=== PATIENT | male | born 1975 | race Caucasian/White ===

== ENCOUNTER 2016-09-08 13:02 | Outpatient (RCR) | payer BC ==
--- OUTSIDE RECORDS SUMMARY | 2016-06-22 14:14 | XMS REPORT | Continuity of Care Document ---
Author Author [facility] Organization [facility] Address Unknown Phone Unavailable Care Team Providers Care Skeet Operator Name Role Phone RiannaWest schmidt PCP [phone] Source Comments Some departments are not documenting in the electronic medical record. If you do not see the information that you expected, contact Release of Information in the Health Information Management department at [phone] for further assistance in locating additional records.[facility] Active Allergies and Adverse Reactions No Known Allergies Current Medications Prescription Sig. Disp. Refills Start End Date Status Date citalopram (CELEXA) 40 mg Take 1 Tab by mouth 30 Tab 5 12/25/19 Active tablet daily. 16 tiZANidine (ZANAFLEX) 4 Take 1 Tab by mouth three 90 Tab 5 01/15/20 Active mg tablet times daily. 16 zolpidem (AMBIEN) 10 mg Take 1 Tab by mouth at 30 Tab 0 01/15/20 Active tablet bedtime as needed for 16 Sleep. LYRICA 75 mg capsule TAKE ONE CAPSULE BY MOUTH 90 Cap 5 01/27/20 Active THREE TIMES DAILY 16 HYDROcodone/acetaminophen Take 1 Tab by mouth every 90 Tab 0 01/27/20 Active (+) (LORTAB, NORCO) 8 hours as needed for 16 10/325 mg tablet Pain traZODone (DESYREL) 50 mg Take 1 Tab by mouth at 30 Tab 8 04/09/20 Active tablet bedtime daily. 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 Frontal sinusitis 07/07/2011 Allergic rhinitis 07/07/2011 Nasal septal deviation 07/07/2011 Generalized headaches 07/07/2011 Most Recent Encounters Date Type Specialty Providers Description 05/26/2016 Telephone Anesthesia Pain Ton Rebolledo MD General Question 05/26/2016 Orders Only Anesthesia Pain Ton Rebolledo MD Lumbar radiculopathy (Primary Dx) 05/13/2016 Hospital Radiology Ton Rebolledo MD Encounter 05/04/2016 Screening Form 04/09/2016 Office Visit Anesthesia Pain Ton Rebolledo MD Chronic pain following surgery or procedure (Primary Dx); Neuropathic pain Social History Tobacco Use Types Packs/Day Years Used Date Never Smoker Smokeless Tobacco: Never Used Alcohol Use Drinks/Week oz/Week Comments Yes soc Last Filed Vital Signs Vital Sign Reading Time Taken Blood Pressure 116/75 04/09/2016 3:23 PM CDT Pulse 68 04/09/2016 3:23 PM CDT Temperature 36.6 C (97.8 F) 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 2.Continued mild disc degeneration at L4-L5. No areas of spinal canal or neural foraminal narrowing are now present. 3.Spinal cord stimulator entering the thecal sac at T11-T12 extending cranially out of the szjqf-za-ioyb. Finalized by PRUDENCE ROBERT M.D. on 05/14/2016 8:54 AM. Dictated by PRUDENCE ROBERT M.D. on 05/14/2016 8:47 AM. Narrative MRI L-SPINE WO/W CONTRAST Clinical indication: BACK PAIN, PRIOR SURGERY. Technique: Pre and postcontrast MRI of the brain was performed. Comparison: May 03, 2013 Findings: There has been interval left L5 hemilaminotomy and microdiscectomy. No recurrent disc is identified. Spinal stimulator wire enters the thecal sac at the level of T11-T12. This extends cranially out of the exmvi-be-lnst. There is normal lumbar curvature and alignment. Vertebral body heights are well- maintained without a suspicious geographic marrow lesion. There is disc degeneration at L4-L5. The conus medullaris terminates normally. The nerve roots of the cauda equina appear unremarkable. The prevertebral and paraspinal soft tissues are unremarkable. There are no areas of spinal canal or neural foraminal narrowing. Procedure Note Interface, Radiant Results - [facility] May 14, 2016 8:58 AM CDT MRI L-SPINE WO/W CONTRAST Clinical indication: BACK PAIN, PRIOR SURGERY. Technique: Pre and postcontrast MRI of the brain was performed. Comparison: May 03, 2013 Findings: There has been interval left L5 hemilaminotomy and microdiscectomy. No recurrent disc is identified. Spinal stimulator wire enters the thecal sac at the level of T11-T12. This extends cranially out of the dgenj-ro-zvjl. There is normal lumbar curvature and alignment. Vertebral body heights are well- maintained without a suspicious geographic marrow lesion. There is disc degeneration at L4-L5. The conus medullaris terminates normally. The nerve roots of the cauda equina appear unremarkable. The prevertebral and paraspinal soft tissues are unremarkable. There are no areas of spinal canal or neural foraminal narrowing. IMPRESSION 1. Previous left L5 hemilaminotomy and microdiscectomy without recurrent disc protrusion. 2. Continued mild disc degeneration at L4-L5. No areas of spinal canal or neural foraminal narrowing are now present. 3. Spinal cord stimulator entering the thecal sac at T11-T12 extending cranially out of the zzvpu-tx-jxfp. Finalized by PRUDENCE ROBERT M.D. on 05/14/2016 8:54 AM. Dictated by PRUDENCE ROBERT M.D. on 05/14/2016 8:47 AM.
[~2016-09-08 13:02] MED LIST: ACHD5005 PO; CYCL10TA45 PO; GBPN100C PO; HYDR-3820 PO; MULT-418; PRD20T PO; PREG75CA PO; RIZA5TAB13 PO; TIZA4CAP8 PO; ZOLP10TA PO; [UNRECOGNIZED DRUG - OTHER]
== END 2016-09-20 | disposition home or self-care (01) ==
PROVIDERS: ATTEND Anesthesiology
DX: M54.16 Radiculopathy, lumbar region (principal)

== ENCOUNTER 2016-09-29 14:01 | Outpatient (RCR) | payer BC ==
--- OUTSIDE RECORDS SUMMARY | 2016-09-21 14:53 | XMS REPORT | Continuity of Care Document ---
Author Author [facility] Organization [facility] Address Unknown Phone Unavailable Care Team Providers Care Shredded Filler Cigar Maker Machine Name Role Phone RiannaWest schmidt PCP [phone] Source Comments Some departments are not documenting in the electronic medical record. If you do not see the information that you expected, contact Release of Information in the Health Information Management department at [phone] for further assistance in locating additional records.[facility] Active Allergies and Adverse Reactions No [...] Nasal septal deviation 07/07/2011 Generalized headaches 07/07/2011 Social History Tobacco Use Types Packs/Day Years Used Date Never Smoker Smokeless Tobacco: Never Used Alcohol Use Drinks/Week oz/Week Comments Yes soc Last Filed Vital Signs Vital Sign Reading Time Taken Blood Pressure 116/75 04/09/2016 3:23 PM CDT Pulse 68 04/09/2016 3:23 PM CDT Temperature 36.6 C (97.8 F) 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
== END 2016-10-15 10:33 | disposition home or self-care (01) ==
PROVIDERS: ATTEND Anesthesiology
DX: M54.16 Radiculopathy, lumbar region (principal)

== ENCOUNTER 2017-02-14 11:07 | Emergency (ER) | payer BC ==
[~2017-02-14] VITALS: Ht 180.3 cm; Wt 95.3 kg
[2017-02-14] MEDS ORDERED: HYDROmorphone (DILAUDID) 2 MG/ML VIAL IVP STA (11:40)
[2017-02-14] MEDS ORDERED: KETOROLAC 30 MG/ML VIAL IVP STA (11:40)
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
[2017-02-14 11:55] LABS: BASOPHILS % (AUTO) 0 % (0-10); EOSINOPHILS # (AUTO) 0.1 10^3/uL (0.0-0.3); EOSINOPHILS % (AUTO) 1 % (0-10); LYMPHOCYTES # (AUTO) 1.6 X 10^3 (1.0-4.0); LYMPHOCYTES % (AUTO) 17 % (12-44); MEAN CORPUSCULAR HEMOGLOBIN 29 PG (25-34); MEAN CORPUSCULAR HGB CONC 34 G/DL (32-36); MEAN CORPUSCULAR VOLUME 84 FL (80-99); MEAN PLATELET VOLUME 10.6 FL (7.4-10.4); MONOCYTES # (AUTO) 0.8 X 10^3 (0.0-1.0); MONOCYTES % (AUTO) 8 % (0-12); NEUTROPHILS % (AUTO) 74 % (42-75); PLATELET COUNT 214 10^3/uL (130-400); RED BLOOD COUNT 5.38 10^6/uL (4.35-5.85); WHITE BLOOD COUNT 9.5 10^3/uL (4.3-11.0)
[2017-02-14 12:18] LABS: ALANINE AMINOTRANSFERASE 29 U/L (0-55); ANION GAP 10 MMOL/L (5-14); ASPARTATE AMINO TRANSFERASE 17 U/L (5-34); BILIRUBIN,TOTAL 0.4 MG/DL (0.1-1.0); BLOOD UREA NITROGEN 14 MG/DL (7-18); BUN/CREATININE RATIO 17; CALCIUM 9.6 MG/DL (8.5-10.1); CARBON DIOXIDE 21 MMOL/L (21-32); CHLORIDE 106 MMOL/L (98-107); CREATININE SERUM 0.81 MG/DL (0.60-1.30); GFR ESTIMATED > 60; GLUCOSE 96 MG/DL (70-105); POTASSIUM 3.6 MMOL/L (3.6-5.0); SODIUM 137 MMOL/L (135-145); TOTAL PROTEIN 7.1 G/DL (6.4-8.2)
[2017-02-14] MEDS ORDERED: ONDANSETRON 4 MG/2 ML (SDV) Z0FRAN IVP ONE (12:30)
[2017-02-14] MEDS ORDERED: HYDROmorphone (DILAUDID) 2 MG/ML VIAL IVP PRN (12:30)
--- NOTE | 2017-02-14 13:02 | Diagnostic Imaging Report ---
PROCEDURE: CT lumbar spine without contrast. TECHNIQUE: Multiple contiguous axial images were obtained through the lumbar spine without the use of intravenous contrast. Sagittal and coronal reformations were then performed. INDICATION: Chronic low back pain. Comparison: Lumbar spine MRI from 06/21/2015. Findings: Normal alignment lumbar spine. No acute fracture or traumatic malalignment. There are chronic bilateral pars defects at L5 without spondylolisthesis. Multilevel endplate Schmorl's nodes are present and not significantly changed since prior examination. There is an epidermal spinal stimulator which has leads entering the epidural space at T12 and coursing in the posterior epidural space into the thoracic spine, with the tips not completely imaged. Small disc bulges at L3-L4 and L4-L5 are similar in appearance to prior MRI. No foci of high-grade spinal stenosis or neuroforaminal narrowing by non-myelogram imaging. Sacrum is normal. SI joints are well-maintained. Retroperitoneum is unremarkable. Impression: 1. No acute abnormality of the lumbar spine. 2. Chronic bilateral pars defects of L5 without spondylolisthesis. 3. Small disc bulges in the lower lumbar spine are unchanged since lumbar spine MRI of 06/21/2015. Dictated by: Dictated on workstation # [id number]
[2017-02-14 14:14] LABS: BILIRUBIN,URINE NEGATIVE (NEGATIVE); KETONES,URINE NEGATIVE (NEGATIVE); LEUKOCYTE ESTERASE ,URINE NEGATIVE (NEGATIVE); NITRITE,URINE NEGATIVE (NEGATIVE); PH,URINE 5 (5-9); PROTEIN,URINE NEGATIVE (NEGATIVE); UROBILINOGEN,URINE NORMAL (NORMAL)
[2017-02-14] MEDS ORDERED: OXYC-202 PO (14:41)
[2017-02-14] MEDS ORDERED: PRD20T PO (14:41)
[2017-02-14 14:50] VITALS: BP 107/68
== END 2017-02-14 14:50 | disposition home or self-care (01) ==
LOC: EDUNIT# 11:07 → ER 11:08
DX: M54.41 Lumbago with sciatica, right side (principal); M54.42 Lumbago with sciatica, left side; G89.29 Other chronic pain; Z79.891 Long term (current) use of opiate analgesic
CPT/HCPCS: 36415; 72131; 80053; 81000; 85025

== ENCOUNTER → 2017-04-28 | Outpatient (CLI) | payer BC ==
[~2017-04-28] MED LIST changes: +OXYC-202 PO
--- NOTE | 2017-04-28 18:12 | Diagnostic Imaging Report ---
INDICATION: KUB. INDICATION: Abdominal pain. FINDINGS: There is a pulse generator with epidural leads projecting over the lower thoracic spine. Moderate amount of fecal material in the colon are seen. No significantly dilated bowel loops. Calcifications in the upper abdomen are probably related to costal cartilage calcification. IMPRESSION: No acute process. Dictated by: Dictated on workstation # [id number]
== END ==
LOC: RAD 15:34
PROVIDERS: ATTEND Nurse Practitioner Family
DX: K59.00 Constipation, unspecified (principal); Z96.9 Presence of functional implant, unspecified
CPT/HCPCS: 74000

== ENCOUNTER → 2018-05-05 | Outpatient (CLI) | payer BC | LOC: RAD 13:44 | PROVIDERS: ATTEND Anesthesiology Pain Medicine | DX: M54.18 Radiculopathy, sacral and sacrococcygeal region (principal); Z53.8 Procedure and treatment not carried out for other reasons ==

== ENCOUNTER 2018-06-02 15:15 | Inpatient (IN) | payer BC ==
[~2018-06-02] VITALS: Ht 175.3 cm; Wt 106.6 kg
[~2018-06-02 15:15] MED LIST changes: -OXYC-202 PO; +OXYC1TAB12 PO
--- OUTSIDE RECORDS SUMMARY | 2018-06-02 15:25 | XMS REPORT | Continuity of Care Document ---
Author Author [facility] Organization [facility] Address Unknown Phone Unavailable Allergies Active Description Code Type Severity Reaction Onset Reported/Identified Relationship to Patient Clinical Status Yes NKANo Known Allergies NKA Miscellaneous Allergy Mild N/A 09/09/2009 Yes No Known Drug Allergy Drug Allergy Unknown N/A 08/03/2016 Yes No Known Drug Category Allergy Drug Allergy Unknown N/A 08/03/2016 Yes No Known Environment Allergy Environmental Allergy Unknown N/A 08/03/2016 Yes No Known Food Allergy Food Allergy Unknown N/A 08/03/2016 Medications Medication Packaging Start Date Stop Date Route Dosage Sig tiZANidine 4 mg tablet Ampule 08/03 4 mg take 1 ( one) Tablet by Oral route daily escitalopram 20 mg tablet Ampule 20 mg take 1 (one) Tablet by Oral route daily Lyrica 100 mg capsule Ampule 2015 100 mg take 1 ( one) Capsule by Oral route three times per day zolpidem 5 mg tablet Ampule 2015 5 mg take 1 ( one) Tablet by Oral route at bedtime Problems Date Dx Coded Attending Type Code Diagnosis Diagnosed By 08/19/1032 DARIN BENITO, DEMARCO Bronson Ot M54.16 RADICULOPATHY, LUMBAR REGION 08/19/1699 DEMARCO WEBSTER MD Ot M54.5 LOW BACK PAIN 03/11/2013 FREDDY BENITO, MICKY Britton Ot 276.52 HYPOVOLEMIA 03/11/2013 FREDDY BENITO, MICKY Britton Ot 729.82 CRAMP IN LIMB 03/11/2013 FREDDY BENITO, MICKY Britton Ot 787.02 NAUSEA ALONE 06/13/2013 LORI JAIMES APRN Ot 724.2 LUMBAGO 06/13/2013 LORI JAIMES APRN Ot 724.4 LUMBOSACRAL NEURITIS NOS 07/25/2013 JAMIE LITTLE MD Ot 458.9 HYPOTENSION NOS 07/25/2013 JAMIE LITTLE MD Ot 780.2 SYNCOPE AND COLLAPSE 10/18/2013 KEISHA REESE MD Ot 338.18 OTHER ACUTE POSTOPERATIVE PAIN 10/18/2013 KEISHA REESE MD Ot 724.2 LUMBAGO 10/18/2013 KEISHA REESE MD Ot 847.9 SPRAIN OF BACK NOS 10/18/2013 KEISHA REESE MD Ot E000.8 OTHER EXTERNAL CAUSE STATUS 10/18/2013 KEISHA REESE MD Ot E849.0 ACCIDENT IN HOME 10/18/2013 KEISHA REESE MD Ot E928.9 ACCIDENT NOS 07/15/2015 DARIN BENITO, DEMARCO Bronson Ot M54.5 07/15/2015 DARIN BENITO, DEMARCO Bronson Ot M79.661 07/15/2015 DEMARCO WEBSTER MD Ot M79.662 10/02/2015 OTHER, UNLISTED Ot M54.17 03/12/2016 DARIN BENITO, DEMARCO Bronson Ot M54.41 LUMBAGO WITH SCIATICA, RIGHT SIDE 03/12/2016 DEMARCO WEBSTER MD Ot M54.42 LUMBAGO WITH SCIATICA, LEFT SIDE 03/14/2016 DEMARCO WEBSTER MD Ot M54.41 LUMBAGO WITH SCIATICA, RIGHT SIDE 03/14/2016 DARIN BENITO, DEMARCO Bronson Ot M54.42 LUMBAGO WITH SCIATICA, LEFT SIDE 05/29/2016 DEMARCO WEBSTER MD Ot M54.5 LOW BACK PAIN 06/08/2016 Ot 473.0 CHR MAXILLARY SINUSITIS 06/08/2016 Ot 784.2 SWELLING IN HEAD NECK 06/08/2016 SIDNEY BENITO, JAMIE Silvestre Ot 397.0 TRICUSPID VALVE DISEASE 06/08/2016 SIDNEY BENITO, JAMIE Silvestre Ot 424.0 MITRAL VALVE DISORDER 06/08/2016 SIDNEY BENITO, JAMIE Silvestre Ot 780.2 SYNCOPE AND COLLAPSE 06/08/2016 DEMARCO WEBSTER MD Ot M54.5 LOW BACK PAIN 06/08/2016 DEMARCO WEBSTER MD Ot M79.661 PAIN IN RIGHT LOWER LEG 06/08/2016 DEMARCO WEBSTER MD Ot M79.662 PAIN IN LEFT LOWER LEG 06/08/2016 OTHER, UNLISTED Ot M54.17 RADICULOPATHY, LUMBOSACRAL REGION 06/08/2016 DEMARCO WEBSTER MD Ot M54.5 LOW BACK PAIN 06/08/2016 LORI JAIMES CONFIGURATOR Ot M54.16 RADICULOPATHY, LUMBAR REGION 06/08/2016 LORI JAIMES CONFIGURATOR Ot M54.5 LOW BACK PAIN 06/08/2016 LORI JAIMES CONFIGURATOR Ot Z79.899 OTHER [facility] (CURRENT) DRUG THERAPY 06/19/2016 DARIN BENITO, DEMARCO Bronson Ot M54.5 LOW BACK PAIN 06/22/2016 DARIN BENITO, DEMARCO Bronson Ot M54.5 LOW BACK PAIN 07/30/2016 DARIN BENITO, DEMARCO Bronson Ot M54.16 RADICULOPATHY, LUMBAR REGION 08/04/2016 Mellion, B Mt G89.4 Chronic pain syndrome Mellion, B Mt 08/04/2016 Mellion, B Mt M47.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, lumbar region Mellion, B Mt 08/04/2016 Mellion, B Mt M54.5 Low back pain Mellion, B Mt 08/04/2016 Mellion, B Mt M96.1 Postlaminectomy syndrome, not elsewhere classified Mellion, B Mt 09/02/2016 DARIN BENITO, DEMARCO Bronson Ot M54.16 RADICULOPATHY, LUMBAR REGION 09/20/2016 DARIN BENITO, DEMARCO Bronson Ot M54.16 RADICULOPATHY, LUMBAR REGION 09/22/2016 DARIN BENITO, DEMARCO Bronson Ot M54.16 RADICULOPATHY, LUMBAR REGION 09/24/2016 DARIN BENITO, DEMARCO Bronson Ot M54.16 RADICULOPATHY, LUMBAR REGION 09/27/2016 DARIN BENITO, DEMARCO Bronson Ot M54.16 RADICULOPATHY, LUMBAR REGION 09/29/2016 DARIN BENITO, DEMARCO Bronson Ot M54.16 RADICULOPATHY, LUMBAR REGION 10/15/2016 DARIN BENITO, DEMARCO Bronson Ot M54.16 RADICULOPATHY, LUMBAR REGION 02/14/2017 CHIQUIS BENITO, LUISA Silvestre Ot G89.29 OTHER CHRONIC PAIN 02/14/2017 CHIQUIS BENITO, LUISA Silvestre Ot M54.41 LUMBAGO WITH SCIATICA, RIGHT SIDE 02/14/2017 LUISA SIM MD Ot M54.42 LUMBAGO WITH SCIATICA, LEFT SIDE 02/14/2017 LUISA SIM MD, Ot M54.5 LOW BACK PAIN 02/14/2017 LUISA SIM MD Ot Z79.891 [facility] (CURRENT) USE OF OPIATE ANALGE 02/17/2017 LUISA SIM MD Ot G89.29 OTHER CHRONIC PAIN 02/17/2017 LUISA SIM MD Ot M54.41 LUMBAGO WITH SCIATICA, RIGHT SIDE 02/17/2017 LUISA SIM MD Ot M54.42 LUMBAGO WITH SCIATICA, LEFT SIDE 02/17/2017 LUISA SIM MD Ot M54.5 LOW BACK PAIN 02/17/2017 LUISA SIM MD Ot Z79.891 [employer] CARD (CURRENT) USE OF OPIATE ANALGE 04/29/2017 RIDGE MARTINEZ APRN Ot K59.00 CONSTIPATION, UNSPECIFIED 04/29/2017 RIDGE MARTINEZ APRN Ot Z96.9 PRESENCE OF FUNCTIONAL IMPLANT, UNSPECIF 05/17/2017 RIDGE MARTINEZ APRN Ot K59.00 CONSTIPATION, UNSPECIFIED 05/17/2017 RIDGE MARTINEZ APRN Ot Z96.9 PRESENCE OF FUNCTIONAL IMPLANT, UNSPECIF 05/11/2018 JIM WATSON MD, Ot M47.816 SPONDYLOSIS W/O MYELOPATHY OR RADICULOPA 05/11/2018 WALTER BENITO, JIM Zuñiga Ot M51.26 OTHER INTERVERTEBRAL DISC DISPLACEMENT, Procedures Code [place] [address] New Patient Detailed Trudi Xiong Mt 08/04/2016 73201 New Patient Detailed Trudi Xiong Mt 11/03/2016 Results Test Result Range Complete blood count (CBC) with automated white blood cell (WBC) differential - 02/14/17 11:45 Blood leukocytes automated count (number/volume) 9.5 10*3/uL 4.3-11.0 Blood erythrocytes automated count (number/volume) 5.38 10*6/uL 4.35-5.85 Venous blood hemoglobin measurement (mass/volume) 15.4 g/dL 13.3-17.7 Blood hematocrit (volume fraction) 45 % 40-54 Automated erythrocyte mean corpuscular volume 84 [foz_us] 80-99 Automated erythrocyte mean corpuscular hemoglobin (mass per erythrocyte) 29 pg 25-34 Automated erythrocyte mean corpuscular hemoglobin concentration measurement ( mass/volume) 34 g/dL 32-36 Automated erythrocyte distribution width ratio 13.0 % 10.0-14.5 Automated blood platelet count (count/volume) 214 10*3/uL 130-400 Automated blood platelet mean volume measurement 10.6 [foz_us] 7.4-10.4 Automated blood neutrophils/100 leukocytes 74 % 42-75 Automated blood lymphocytes/100 leukocytes 17 % 12-44 Blood monocytes/100 leukocytes 8 % 0-12 Automated blood eosinophils/100 leukocytes 1 % 0-10 Automated blood basophils/100 leukocytes 0 % 0-10 Blood neutrophils automated count (number/volume) 7.0 10*3 1.8-7.8 Blood lymphocytes automated count (number/volume) 1.6 10*3 1.0-4.0 Blood monocytes automated count (number/volume) 0.8 10*3 0.0-1.0 Automated eosinophil count 0.1 10*3/uL 0.0-0.3 Automated blood basophil count (count/volume) 0.0 10*3/uL 0.0-0.1 Comprehensive metabolic panel - 02/14/17 11:45 Serum or plasma sodium measurement (moles/volume) 137 mmol/L 135-145 Serum or plasma potassium measurement (moles/volume) 3.6 mmol/L 3.6-5.0 Serum or plasma chloride measurement (moles/volume) 106 mmol/L 98-107 Carbon dioxide 21 mmol/L 21-32 Serum or plasma anion gap determination (moles/volume) 10 mmol/L 5-14 Serum or plasma urea nitrogen measurement (mass/volume) 14 mg/dL 7-18 Serum or plasma creatinine measurement (mass/volume) 0.81 mg/dL 0.60-1.30 Serum or plasma urea nitrogen/creatinine mass ratio 17 NRG Serum or plasma creatinine measurement with calculation of estimated glomerular filtration rate > NRG Serum or plasma glucose measurement (mass/volume) 96 mg/dL 70-105 Serum or plasma calcium measurement (mass/volume) 9.6 mg/dL 8.5-10.1 Serum or plasma total bilirubin measurement (mass/volume) 0.4 mg/dL 0.1-1.0 Serum or plasma alkaline phosphatase measurement (enzymatic activity/volume) 75 U/L 40-136 Serum or plasma aspartate aminotransferase measurement (enzymatic activity/ volume) 17 U/L 5-34 Serum or plasma alanine aminotransferase measurement (enzymatic activity/volume ) 29 U/L 0-55 Serum or plasma protein measurement (mass/volume) 7.1 g/dL 6.4-8.2 Serum or plasma albumin measurement (mass/volume) 4.0 g/dL 3.2-4.5 Complete urinalysis with reflex to culture - 02/14/17 14:00 Urine color determination YELLOW NRG Urine clarity determination CLEAR NRG Urine pH measurement by test strip 5 5-9 Specific gravity of urine by test strip 1.015 1.016- 1.022 Urine protein assay by test strip, semi-quantitative NEGATIVE NEGATIVE Urine glucose detection by automated test strip 3+ NEGATIVE Erythrocytes detection in urine sediment by light microscopy NEGATIVE NEGATIVE Urine ketones detection by automated test strip NEGATIVE NEGATIVE Urine nitrite detection by test strip NEGATIVE NEGATIVE Urine total bilirubin detection by test strip NEGATIVE NEGATIVE Urine urobilinogen measurement by automated test strip (mass/volume) NORMAL NORMAL Urine leukocyte esterase detection by dipstick NEGATIVE NEGATIVE Automated urine sediment erythrocyte count by microscopy (number/high power field) NONE NRG Automated urine sediment leukocyte count by microscopy (number/high power field ) NONE NRG Bacteria detection in urine sediment by light microscopy NEGATIVE NRG Crystals detection in urine sediment by light microscopy NONE NRG Casts detection in urine sediment by light microscopy NONE NRG Mucus detection in urine sediment by light microscopy NEGATIVE NRG Complete urinalysis with reflex to culture NO NRG Encounters ACCT No. Visit Date/Time Discharge Status Pt. Type Provider Facility Loc./Unit Complaint [id number] 02/23/2017 12:42:19 02/23/2017 23:59:59 CLS Outpatient Flaco Dilan [id number] 05/10/2018 10:50:00 05/10/2018 23:59:59 CLS Outpatient WALTER BENITO, JIM Zuñiga [facility] RAD RADICULOPATHY,LUMBAR REGION [id number] 04/28/2017 15:34:00 04/28/2017 23:59:59 CLS Outpatient RIDGE MARTINEZ APRN [facility] RAD ABDOMINAL PAIN, CONSTIPATION,BLOATING [id number] 02/14/2017 11:08:00 02/14/2017 14:50:00 DIS Emergency CHIQUIS BENITO, LUISA Silvestre [facility] ER BACK PAIN [id number] 09/29/2016 14:01:00 10/15/2016 10:33:00 DIS Outpatient DEMARCO WEBSTER MD [facility] REHAB LOW BACK PAIN [id number] 09/08/2016 13:02:00 09/20/2016 00:01:00 DIS Outpatient DEMARCO WEBSTER MD [facility] REHAB LOW BACK PAIN [id number] 06/19/2016 14:28:00 06/19/2016 17:00:00 DIS Outpatient DEMARCO WEBSTER MD [facility] REHAB LOW BACK PAIN [id number] 06/08/2016 16:55:00 06/08/2016 19:01:00 DIS Emergency LORI JAIMES CONFIGURATOR [facility] ER BACK/BILAT LEG PAIN [id number] 02/03/2016 14:32:00 03/12/2016 14:40:00 DIS Outpatient DEMARCO WEBSTER MD [facility] REHAB BACK PAIN [id number] 09/19/2015 15:11:00 09/19/2015 23:59:59 CLS Outpatient OTHER, UNLISTED [facility] LAB MRSA SCREEN [id number] 06/21/2015 12:16:00 06/21/2015 23:59:59 CLS Outpatient DEMARCO WEBSTER MD [facility] RAD LOWER BACK LEG PAIN [id number] 10/18/2013 03:54:00 10/18/2013 05:58:00 DIS Emergency KEISHA REESE MD [facility] ER BACK PAIN [id number] 07/25/2013 13:39:00 07/25/2013 14:38:00 DIS Outpatient JAMIE LITTLE MD [facility] CARD SYNCOPE [id number] 07/24/2013 10:28:00 07/24/2013 23:59:59 CLS Outpatient JAMIE LITTLE MD [facility] CARD SYNCOPE [id number] 06/13/2013 19:48:00 06/13/2013 21:47:00 DIS Emergency LORI JAIMES CONFIGURATOR [facility] ER BACK PAIN [id number] 03/11/2013 21:03:00 03/11/2013 22:51:00 DIS Emergency FREDDY BENITO, MICKY [facility] ER LEG PAIN,FATIGUE [id number] 06/24/2011 15:08:00 Document Registration [id number] 08/04/2016 12:35:09 08/04/2016 23:59:59 CLS Outpatient Trudi Xiong [id number] 08/04/2017 14:50:47 08/04/2017 23:59:59 CLS Outpatient
[2018-06-02] MEDS ORDERED: NS IV 1000 ML 1,000 ML IV ONE (15:27)
[2018-06-02 15:57] LABS: BASOPHILS % (AUTO) 0 % (0-10); EOSINOPHILS % (AUTO) 0 % (0-10); HEMATOCRIT 40 % (40-54); HEMOGLOBIN 13.5 G/DL (13.3-17.7); LYMPHOCYTES # (AUTO) 1.4 X 10^3 (1.0-4.0); LYMPHOCYTES % (AUTO) 9 % (12-44); MEAN CORPUSCULAR HEMOGLOBIN 29 PG (25-34); MEAN CORPUSCULAR HGB CONC 34 G/DL (32-36); MEAN CORPUSCULAR VOLUME 85 FL (80-99); MONOCYTES # (AUTO) 1.5 X 10^3 (0.0-1.0); MONOCYTES % (AUTO) 10 % (0-12); NEUTROPHILS # (AUTO) 12.1 X 10^3 (1.8-7.8); NEUTROPHILS % (AUTO) 80 % (42-75); PLATELET COUNT 237 10^3/uL (130-400); RED BLOOD COUNT 4.66 10^6/uL (4.35-5.85); RED CELL DISTRIBUTION WIDTH 13.7 % (10.0-14.5)
--- NOTE | 2018-06-02 16:04 | Diagnostic Imaging Report ---
CLINICAL INDICATION: Patient found on floor, possible overdose. Patient unable to answer questions or follow breathing instructions. EXAM: Portable chest x-ray upright view. COMPARISONS: None. FINDINGS: Lungs/pleura: Lungs are clear. There is no pneumothorax. There is no pleural effusion. Mediastinum: Unremarkable. Pulmonary vasculature: Unremarkable. Heart: Unremarkable. Bones/extrathoracic soft tissue: Neurostimulator electrode device is seen with tip overlying the midthoracic spine region. IMPRESSION: There is no radiographic evidence of acute cardiopulmonary process. Dictated by: Dictated on workstation # [id number]
[2018-06-02 16:12] LABS: BAND NEUTROPHILS 0 %; BASOPHILS % (MANUAL) 0 %; EOSINOPHILS % (MANUAL) 1 %; LYMPHOCYTES % (MANUAL) 14 %; MONOCYTES % (MANUAL) 7 %; NEUTROPHILS % (MANUAL) 78 %; RBC MORPH NORMAL
[2018-06-02 16:15] LABS: BILIRUBIN,URINE NEGATIVE (NEGATIVE); CLARITY,URINE CLEAR; COLOR,URINE YELLOW; GLUCOSE, URINE (UA) NEGATIVE (NEGATIVE); KETONES,URINE NEGATIVE (NEGATIVE); LEUKOCYTE ESTERASE ,URINE NEGATIVE (NEGATIVE); NITRITE,URINE NEGATIVE (NEGATIVE); PH,URINE 5 (5-9); PROTEIN,URINE 3+ (NEGATIVE); UROBILINOGEN,URINE NORMAL (NORMAL)
[2018-06-02 16:15] LABS: ACETAMINOPHEN 10 UG/ML (10-30); ALANINE AMINOTRANSFERASE 37 U/L (0-55); ALBUMIN 4.2 GM/DL (3.2-4.5); ALKALINE PHOSPHATASE 65 U/L (40-136); BILIRUBIN,TOTAL 0.8 MG/DL (0.1-1.0); BUN/CREATININE RATIO 10; CALCIUM 9.7 MG/DL (8.5-10.1); CARBON DIOXIDE 17 MMOL/L (21-32); CHLORIDE 107 MMOL/L (98-107); CREATININE SERUM 1.72 MG/DL (0.60-1.30); GFR ESTIMATED 44; GLUCOSE 107 MG/DL (70-105); MAGNESIUM 2.4 MG/DL (1.8-2.4); POTASSIUM 4.2 MMOL/L (3.6-5.0); SALICYLATE < 5.0 MG/DL (5.0-20.0); SODIUM 137 MMOL/L (135-145); TOTAL PROTEIN 6.7 GM/DL (6.4-8.2)
[2018-06-02 16:32] LABS: AMPHETAMINE SCREEN, URINE NEGATIVE (NEGATIVE); BARBITURATE SCREEN URINE NEGATIVE (NEGATIVE); BENZODIAZEPINES SCREEN URINE NEGATIVE (NEGATIVE); CANNABINOID SCREEN, URINE NEGATIVE (NEGATIVE); COCAINE SCREEN URINE NEGATIVE (NEGATIVE); METHADONE STAT NEGATIVE (NEGATIVE); METHAMPHETAMINE SCREEN URINE S NEGATIVE (NEGATIVE); OPIATE SCREEN URINE POSITIVE (NEGATIVE); OXYCODONE STAT POSITIVE (NEGATIVE); PROPOXYPHENE STAT NEGATIVE (NEGATIVE); TRICYCLIC ANTIDEPRESSANTS SCRE NEGATIVE (NEGATIVE)
[2018-06-02 16:35] LABS: TSH (THYROID ANALYZER) 1.97 UIU/ML (0.35-4.94)
[2018-06-02 16:40] LABS: BACTERIA,URINE TRACE /HPF; WBC,URINE 0-2 /HPF
--- NOTE | 2018-06-02 17:48 | Diagnostic Imaging Report ---
PROCEDURE: CT head and CT cervical spine without contrast. TECHNIQUE: Multiple contiguous axial images were obtained through the brain and cervical spine without the use of intravenous contrast. Sagittal and coronal reformations through the cervical spine were then performed. DATE: June 02, 2018. COMPARISON: CT head without contrast September 09, 2009. INDICATION: 42-year-old male, head and neck pain. FINDINGS: The ventricles and cerebral spinal fluid spaces are of normal size and configuration for the patient's age. There is no mass effect or midline shift. There is no acute intracranial hemorrhage. There is no abnormal extra-axial fluid collection. The frontal sinuses are hypoplastic. There is partial opacification within the inferior aspect of the left maxillary sinus. The mastoid air cells and middle ears are well aerated bilaterally. There is pneumatization of the petrous apices. There is no facet joint subluxation or dislocation. There is no asymmetric widening of the cervical disc spaces. There is no prominent prevertebral soft tissue swelling. There is no identified acute fracture of the cervical spine. The cervical disc heights are well preserved. CT is limited for assessment of disc pathology as well as additional non-bony causes of foraminal and spinal stenosis. The facet articulations are unremarkable in appearance. Very partially visualized portions of the lung apices are grossly clear. IMPRESSION: 1. No identified acute intracranial abnormality. 2. No identified acute abnormality of the cervical spine. Dictated by: Dictated on workstation # [id number]
--- NOTE | 2018-06-02 18:50 | ED Psychosocial ---
General Chief Complaint: Overdose Stated Complaint: OVERDOSE Nursing Triage Note: pt arrive by [facility] em[facility] accompanied by [facility] after pt parents report intentional ingestion of oxycodones, ambien, and trazadone to 'harm self because he can no longer deal with the pain.' fpd ,reports ingestion prior his arrival at approx 1500. pt alert, restless, and agitated. pt having hallucinations. Source: patient, family, EMS, old records Exam Limitations: clinical condition History of Present Illness Date Seen by Provider: Jun 02, 2018 Time Seen by Provider: 15:16 Initial Comments This 42-year-old man is brought to the emergency room via EMS after being found down in the bathroom with decreased responsiveness by his father who came to the home to check on him. Patient admitted to taking large quantities of hydrocodone, Ambien, and nizatidine. The quantities of these medications very depending on patient's report at any given time. He does have bottles of Percocet, Ambien, Lyrica, and tizanidine brought with him by EMS. Patient is arousable and can answer some questions but is extremely somnolent with slurred , sometimes incomprehensible speech. EMS administered 2 mg of Narcan which did improve his mental status modestly. They report pupils were pinpoint prior to Narcan. Fingerstick blood sugar was 96. Parents were interviewed as well. Father reports that patient seemed excessively somnolent and weak last night. He had taken his medications before bed and then had trouble getting into bed. His father could not get him into bed and therefore made him a polyp on the floor. When his father checked on him this morning around 10:00, he was still in the same place but was able to get up and ambulate with some difficulty. His father then checked on him after lunch and found him draped over the toilet with altered mental status. He activated EMS. Patient's story and his report of which medications and in what quantities he consumed varies. Ingestion time was somewhere around 14:00. Patient does clearly state that his intent was suicide by overdose. He states he is tired of dealing with his chronic back and leg pain and therefore intended to commit suicide with this overdose. Allergies and Home Medications Allergies Coded Allergies: NKANo Known Allergies (Unverified Allergy, Mild, 09/09/09) Home Medications Hydrocodone/Acetaminophen 1 Each Tablet, 1 EACH PO Q8H PRN for P, (Reported) Oxycodone HCl/Acetaminophen 1 Each Tablet, 2 EACH PO Q4H PRN for PAIN- BREAKTHROUGH Prescribed by: LUISA SIM on 02/14/17 144 Prednisone 20 Mg Tab, 40 MG PO DAILY Prescribed by: LORI JAIMES on 06/08/161833 Prednisone 20 Mg Tab, 40 MG PO BID Prescribed by: LUISA SIM on 02/14/17 144 Pregabalin 75 Mg Capsule, 75 MG PO TID, (Reported) Tizanidine HCl 4 Mg Capsule, 4 MG PO TID, (Reported) Zolpidem Tartrate 10 Mg Tablet, 10 MG PO HS Prescribed by: LORI JAIMES on 06/08/161833 Patient Home Medication List Home Medication List Reviewed: Yes Review of Systems Constitutional: see HPI EENTM: no symptoms reported Respiratory: no symptoms reported Cardiovascular: no symptoms reported Gastrointestinal: no symptoms reported Genitourinary: no symptoms reported Musculoskeletal: see HPI Skin: no symptoms reported Psychiatric/Neurological: See HPI Past Vsdlnst-Xcnpba-Emwwzj Hx Patient Social History Recent Foreign Travel: No Contact w/Someone Who Travel: No Recent Infectious Disease Expo: No Recent Hopitalizations: No Seasonal Allergies Seasonal Allergies: No Past Medical History Surgeries: Yes (DISCECTOMY L4-L5) Respiratory: No Cardiac: No Neurological: No Reproductive Disorders: No Gastrointestinal: No Musculoskeletal: Yes (back injury 3 months ago herniated disk l-5, NERVE STIMULATOR IN BACK) Chronic Back Pain, Spasms Endocrine: No Cancer: No Psychosocial: Yes Depression Integumentary: No Blood Disorders: No Family Medical History No Pertinent Family Hx Physical Exam Vital Signs - First Documented 06/02/18 15:33 Temp 95.5 Pulse 60 Resp 14 B/P (MAP) 121/105 (110) Pulse Ox 99 O2 Delivery Room Air Capillary Refill : Less Than 3 Seconds Height, Weight, BMI Height: 5'9.00" Weight: 200lbs. oz. 90.531764ha; BMI Method:Estimated General Appearance: WD/WN, other (Somnolent but agitated) HEENT: PERRL/EOMI, normal ENT inspection, other (Oropharynx dry) Neck: normal inspection Respiratory: lungs clear, normal breath sounds, no respiratory distress, no accessory muscle use Cardiovascular: regular rate, rhythm, no edema, no murmur Gastrointestinal: normal bowel sounds, non tender, soft Extremities: normal inspection, no pedal edema Neurologic/Psychiatric: other (Patient is somnolent but arousable and answers questions. He is able to move all 4 extremities. He has some involuntary twitching and jerking. Speech is slurred or mumbled.) Appearance/Memory: impaired insight, impaired recent memory Behavior/Eye Contact: cooperative, avoids eye contact Thoughts/Hallucinations: other (Suicidal ideation and intent) Skin: normal color, warm/dry Progress/Results/Core Measures Results/Orders Lab Results Laboratory Tests Test 06/02/18 15:23 06/02/18 15:45 06/02/18 17:14 06/02/18 19:32 Range/Units White Blood Count 15.0 H 4.3-11.0 10^3/uL Red Blood Count 4.66 4.35-5.85 10^6/uL Hemoglobin 13.5 13.3-17.7 G/DL Hematocrit 40 40-54 % Mean Corpuscular Volume 85 80-99 FL Mean Corpuscular Hemoglobin 29 25-34 PG Mean Corpuscular Hemoglobin Concent 34 32-36 G/DL Red Cell Distribution Width 13.7 10.0-14.5 % Platelet Count 237 130-400 10^3/uL Mean Platelet Volume 11.0 H 7.4-10.4 FL Neutrophils (%) (Auto) 80 H 42-75 % Lymphocytes (%) (Auto) 9 L 12-44 % Monocytes (%) (Auto) 10 0-12 % Eosinophils (%) (Auto) 0 0-10 % Basophils (%) (Auto) 0 0-10 % Neutrophils # (Auto) 12.1 H 1.8-7.8 X 10^3 Lymphocytes # (Auto) 1.4 1.0-4.0 X 10^3 Monocytes # (Auto) 1.5 H 0.0-1.0 X 10^3 Eosinophils # (Auto) 0.0 0.0-0.3 10^3/uL Basophils # (Auto) 0.0 0.0-0.1 10^3/uL Neutrophils % (Manual) 78 % Lymphocytes % (Manual) 14 % Monocytes % (Manual) 7 % Eosinophils % (Manual) 1 % Basophils % (Manual) 0 % Band Neutrophils 0 % Blood Morphology Comment NORMAL Sodium Level 137 135-145 MMOL/L Potassium Level 4.2 3.6-5.0 MMOL/L Chloride Level 107 98-107 MMOL/L Carbon Dioxide Level 17 L 21-32 MMOL/L Anion Gap 13 5-14 MMOL/L Blood Urea Nitrogen 17 7-18 MG/DL Creatinine 1.72 H 0.60-1.30 MG/DL Estimat Glomerular Filtration Rate 44 BUN/Creatinine Ratio 10 Glucose Level 107 H 70-105 MG/DL Calcium Level 9.7 8.5-10.1 MG/DL Corrected Calcium 9.5 8.5-10.1 MG/DL Magnesium Level 2.4 1.8-2.4 MG/DL Total Bilirubin 0.8 0.1-1.0 MG/DL Aspartate Amino Transf (AST/SGOT) 52 H 5-34 U/L Alanine Aminotransferase (ALT/SGPT) 37 0-55 U/L Alkaline Phosphatase 65 40-136 U/L Total Protein 6.7 6.4-8.2 GM/DL Albumin 4.2 3.2-4.5 GM/DL TSH [place] Testing 1.97 0.35-4.94 UIU/ML Salicylates Level < 5.0 L 5.0-20.0 MG/DL Acetaminophen Level 10 10-30 UG/ML Serum Alcohol < 10 <10 MG/DL Urine Color YELLOW Urine Clarity CLEAR Urine pH 5 5-9 Urine Specific [place] 1.020 1.016-1.022 Urine Protein 3+ H NEGATIVE Urine Glucose (UA) NEGATIVE NEGATIVE Urine Ketones NEGATIVE NEGATIVE Urine Nitrite NEGATIVE NEGATIVE Urine Bilirubin NEGATIVE NEGATIVE Urine Urobilinogen NORMAL NORMAL MG/DL Urine Leukocyte Esterase NEGATIVE NEGATIVE Urine RBC (Auto) 2+ H NEGATIVE Urine RBC 2-5 H /HPF Urine WBC 0-2 /HPF Urine Crystals NONE /LPF Urine Bacteria TRACE /HPF Urine Casts NONE /LPF Urine Mucus MODERATE H /LPF Urine Culture Indicated NO Urine Opiates Screen POSITIVE H NEGATIVE Urine Oxycodone Screen POSITIVE H NEGATIVE Urine Methadone Screen NEGATIVE NEGATIVE Urine Propoxyphene Screen NEGATIVE NEGATIVE Urine Barbiturates Screen NEGATIVE NEGATIVE Ur Tricyclic Antidepressants Screen NEGATIVE NEGATIVE Urine Phencyclidine Screen NEGATIVE NEGATIVE Urine Amphetamines Screen NEGATIVE NEGATIVE Urine Methamphetamines Screen NEGATIVE NEGATIVE Urine Benzodiazepines Screen NEGATIVE NEGATIVE Urine Cocaine Screen NEGATIVE NEGATIVE Urine Cannabinoids Screen NEGATIVE NEGATIVE Glucometer 110 70-110 MG/DL My Orders Orders - MICKY HAYES MD Acetaminophen (06/02/18 15:27) Alcohol (06/02/18 15:27) Cbc With Automated Diff (06/02/18:) Comprehensive Metabolic Panel (06/02/18) Drug Screen Stat (Urine) (06/02/18:) Magnesium (06/02/18:) Salicylate (06/02/18:) Thyroid Analyzer (06/02/18:) Ua Culture If Indicated (06/02/18:) Chest 1 View, Ap/Pa Only (06/02/18:) Ct Head/Cervical Spine Wo (06/02/18:) Saline Lock/Iv-Start (06/02/18:) Ns Iv 1000 Ml (Sodium Chloride 0.9%) (06/02/18:27) Salas Cath (06/02/18 15:38) Manual Differential (06/02/18:23) Acetaminophen (06/02/18 19:20) Accucheck Stat ONCE (06/02/18 16:59) Ekg Tracing (06/02/18 16:59) Ekg Tracing (06/02/18 16:59) Accucheck Stat ONCE (06/02/18 17:01) Ekg Tracing (06/02/18 18:46) Comprehensive Metabolic Panel (06/02/18 19:30) Medications Given in ED Current Medications Medications Dose Ordered Sig/Daniel Route Start Time Stop Time Status Last Admin Dose Admin Sodium Chloride 1,000 ml @ 0 mls/hr Q0M ONCE IV 06/02/18:27 06/02/18 15:30 DC 06/02/18 17:06 0 MLS/HR Vital Signs/I&O 06/02/18 15:33 Temp 95.5 Pulse 60 Resp 14 B/P (MAP) 121/105 (110) Pulse Ox 99 O2 Delivery Room Air Blood Pressure Mean: 110 FSBG Bedside Testing Finger Stick Blood Glucose: 110 Progress Progress Note : Progress Note Patient was thoroughly assessed upon arrival. Labs were obtained. C-collar was applied as patient was found down and trauma could not be ruled out. CT of the head and cervical spine demonstrated no injuries and c-collar was removed. Patient was given a total of 2 L IV fluids. Poison control was contacted and provided recommendations including at least 6 hours of direct or monitoring for Ambien alone. He also recommended monitoring for QRS greater than 100 and QTc greater than 500. He recommended 2 A of sodium bicarbonate and a 1 L bolus of IV fluids with repeat EKG for prolonged QRS. They recommended to grams of magnesium sulfate and repeat EKG for QTc prolongation. Serial EKGs were obtained 3. Intervals were found to be within the recommended duration. Patient had an abrupt improvement in mental status and rapidly became alert and oriented. Salas catheter had been placed but was removed after he became more alert. Case was discussed with Dr. Gore who agrees it is advisable to admit the patient overnight for treatment of his acute renal failure and to monitor renal and liver function. A four-hour acetaminophen level will be drawn and called to Dr. Gore after admission. Once patient became more alert, he was angry that his suicide attempt was not successful. He admits to persistent suicidal ideation. He is, however, agreeable to admission to psychiatric facility as long as his pain is addressed. EKG #1: EKG Time: 15:27 Rate: 61 Rhythm: Normal Sinus Intervals: Normal ECG Impression: Normal Comment Normal sinus rhythm with no ST elevation or depression. No abnormal intervals or axis deviation. EKG #2: EKG Time: 17:07 Rate: 61 Rhythm: Normal Sinus Intervals: Normal ECG Impression: Normal Comment Normal sinus rhythm with no ST elevation or depression. No abnormal intervals or axis deviation. EKG #3: EKG Time: 19:00 Rate: 61 Rhythm: Normal Sinus Intervals: Normal ECG Impression: Normal Comment Normal sinus rhythm with no ST elevation or depression. No axis deviation. No abnormal QRS or QTc interval. Diagnostic Imaging Diagonstic Imaging: Xray Plain Films/CT/US/NM/MRI: chest Comments Chest x-ray viewed by me and report reviewed. See report below: NAME: DESTINEE NUÑEZ [facility] REC#: [id number] PT STATUS: REG ER : 1975 PHYSICIAN: MICKY HAYES MD ADMIT DATE: 06/02/18/ER Signed Date of Exam: 06/02/18 CHEST 1 VIEW, AP/PA ONLY CLINICAL INDICATION: Patient found on floor, possible overdose. Patient unable to answer questions or follow breathing instructions. EXAM: Portable chest x-ray upright view. COMPARISONS: None. FINDINGS: Lungs/pleura: Lungs are clear. There is no pneumothorax. There is no pleural effusion. Mediastinum: Unremarkable. Pulmonary vasculature: Unremarkable. Heart: Unremarkable. Bones/extrathoracic soft tissue: Neurostimulator electrode device is seen with tip overlying the midthoracic spine region. IMPRESSION: There is no radiographic evidence of acute cardiopulmonary process. Dictated by: Dictated on workstation # [id number] Dict: 06/02/18 1601 Trans: 06/02/181702 Interpreted by: CATY MCGRATH MD Electronically signed by: CATY MCGRATH MD 06/02/181702 Diagonstic Imaging: CT Plain Films/CT/US/NM/MRI: c-spine, head Comments CT head and C-spine viewed by me and report reviewed. See report below: NAME: DESTINEE NUÑEZ [facility] REC#: [id number] PT STATUS: REG ER : 1975 PHYSICIAN: MICKY HAYES MD ADMIT DATE: 06/02/18/ER Signed Date of Exam: 06/02/18 CT HEAD/CERVICAL SPINE WO PROCEDURE: CT head and CT cervical spine without contrast. TECHNIQUE: Multiple contiguous axial images were obtained through the brain and cervical spine without the use of intravenous contrast. Sagittal and coronal reformations through the cervical spine were then performed. DATE: June 02, 2018. COMPARISON: CT head without contrast September 09, 2009. INDICATION: 42-year-old male, head and neck pain. FINDINGS: The ventricles and cerebral spinal fluid spaces are of normal size and configuration for the patient's age. There is no mass effect or midline shift. There is no acute intracranial hemorrhage. There is no abnormal extra-axial fluid collection. The frontal sinuses are hypoplastic. There is partial opacification within the inferior aspect of the left maxillary sinus. The mastoid air cells and middle ears are well aerated bilaterally. There is pneumatization of the petrous apices. There is no facet joint subluxation or dislocation. There is no asymmetric widening of the cervical disc spaces. There is no prominent prevertebral soft tissue swelling. There is no identified acute fracture of the cervical spine. The cervical disc heights are well preserved. CT is limited for assessment of disc pathology as well as additional non-bony causes of foraminal and spinal stenosis. The facet articulations are unremarkable in appearance. Very partially visualized portions of the lung apices are grossly clear. IMPRESSION: 1. No identified acute intracranial abnormality. 2. No identified acute abnormality of the cervical spine. Dictated by: Dictated on workstation # [id number] Dict: 06/02/18 1739 Trans: 06/02/181857 Interpreted by: PATRICIA SZYMANSKI MD Electronically signed by: PATRICIA SZYMANSKI MD 06/02/181857 Departure Communication (Admissions) Time/Spoke to Admitting Phy: 18:30 Dr. Gore Impression Primary Impression: Suicide attempt Additional Impressions: Overdose Qualified Codes: T50.902A - Poisoning by unspecified drugs, medicaments and biological substances, intentional self-harm, initial encounter Acute renal failure Qualified Codes: N17.9 - Acute kidney failure, unspecified Chronic pain Qualified Codes: G89.4 - Chronic pain syndrome Leukocytosis Qualified Codes: D72.829 - Elevated white blood cell count, unspecified Disposition: ADMITTED INPATIENT Condition: Improved Admissions Decision to Admit Reason: Admit from ER (General) Decision to Admit/Date: Jun 02, 2018 Time/Decision to Admit Time: 15:30 Departure-Patient Inst. Referrals: NATIVIDAD GORE MD (PCP/Family) Primary Care Physician MICKY HAYES MD Jun 02, 2018 18:50
--- OUTSIDE RECORDS SUMMARY | 2018-06-02 19:33 | XMS REPORT | Continuity of Care Document ---
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 Ot Z79.899 OTHER JAIL (CURRENT) DRUG THERAPY 06/19/2016 DARIN BENITO, DEMARCO [...] PAIN 02/14/2017 LUISA SIM MD Ot Z79.891 JAIL (CURRENT) USE OF OPIATE ANALGE 02/17/2017 LUISA SIM MD Ot G89.29 OTHER CHRONIC PAIN 02/17/2017 LUISA SIM MD Ot M54.41 LUMBAGO WITH SCIATICA, RIGHT SIDE 02/17/2017 LUISA SIM MD Ot M54.42 LUMBAGO WITH SCIATICA, LEFT SIDE 02/17/2017 LUISA SIM MD Ot M54.5 LOW BACK PAIN 02/17/2017 LUISA SIM MD Ot Z79.891 EQUIPMENT TESTER (CURRENT) USE OF OPIATE ANALGE 04/29/2017 RIDGE [...] Procedures Code [place] [address] New Patient Detailed Trudi Xiong Mt 08/04/2016 75762 New Patient Detailed Trudi Xiong Mt 11/03/2016 [...] Status Pt. Type Provider Facility Loc./Unit Complaint [id number] 02/23/2017 12:42:19 02/23/2017 23:59:59 CLS Outpatient Flaco Dilan [id number] 05/10/2018 10:50:00 05/10/2018 23:59:59 CLS Outpatient WALTER BENITO, JIM Zuñiga [facility] RAD RADICULOPATHY,LUMBAR REGION [id number] 04/28/2017 15:34:00 04/28/2017 23:59:59 CLS Outpatient RIDGE MARTINEZ APRN [facility] RAD ABDOMINAL PAIN, CONSTIPATION,BLOATING [id number] 02/14/2017 11:08:00 02/14/2017 14:50:00 DIS Emergency CHIQUIS BENITO, LUISA Silvestre [facility] ER BACK PAIN [id number] 09/29/2016 14:01:00 10/15/2016 10:33:00 DIS Outpatient DEMARCO WEBSTER MD [facility] REHAB LOW BACK PAIN [id number] 09/08/2016 13:02:00 09/20/2016 00:01:00 DIS Outpatient DEMARCO WEBSTER MD [facility] REHAB LOW BACK PAIN [id number] 06/19/2016 14:28:00 06/19/2016 17:00:00 DIS Outpatient DEMARCO WEBSTER MD [facility] REHAB LOW BACK PAIN [id number] 06/08/2016 16:55:00 06/08/2016 19:01:00 DIS Emergency LORI JAIMES [employer] BACKTENDER [facility] ER BACK/BILAT LEG PAIN [id number] 02/03/2016 14:32:00 03/12/2016 14:40:00 DIS Outpatient DEMARCO WEBSTER MD [facility] REHAB BACK PAIN [id number] 09/19/2015 15:11:00 09/19/2015 23:59:59 CLS Outpatient OTHER, UNLISTED [facility] LAB MRSA SCREEN [id number] 06/21/2015 12:16:00 06/21/2015 23:59:59 CLS Outpatient DEMARCO WEBSTER MD [facility] RAD LOWER BACK LEG PAIN [id number] 10/18/2013 03:54:00 10/18/2013 05:58:00 DIS Emergency KEISHA REESE MD [facility] ER BACK PAIN [id number] 07/25/2013 13:39:00 07/25/2013 14:38:00 DIS Outpatient JAMIE LITTLE MD [facility] CARD SYNCOPE [id number] 07/24/2013 10:28:00 07/24/2013 23:59:59 CLS Outpatient JAMIE LITTLE MD [facility] CARD SYNCOPE [id number] 06/13/2013 19:48:00 06/13/2013 21:47:00 DIS Emergency LORI JAIMES [employer] BACKTENDER [facility] ER BACK PAIN [id number] 03/11/2013 21:03:00 03/11/2013 22:51:00 DIS Emergency FREDDY BENITO, MICKY Britton [facility] ER LEG PAIN,FATIGUE [id number] 06/02/2018 19:29:00 ACT Inpatient MARCO A BENITO, NATIVIDAD Arenas [facility] ICU SUICIDE ATTEMPT, POLY PHARMACY OVERDOSE [id number] 06/24/2011 15:08:00 Document Registration [id number] 08/04/2016 12:35:09 08/04/2016 23:59:59 CLS Outpatient Trudi Xiong [id number] 08/04/2017 14:50:47 08/04/2017 23:59:59 CLS Outpatient
[2018-06-02 19:58] VITALS: BP 167/101
[2018-06-02] MEDS ORDERED: ONDANSETRON 4 MG/2 ML (SDV) Z0FRAN IV PRN (20:00)
[2018-06-02 20:08] LABS: ACETAMINOPHEN < 10 UG/ML (10-30); ALANINE AMINOTRANSFERASE 17 U/L (0-55); ALBUMIN 1.6 GM/DL (3.2-4.5); ALKALINE PHOSPHATASE 25 U/L (40-136); BILIRUBIN,TOTAL 0.4 MG/DL (0.1-1.0); BUN/CREATININE RATIO 19; CHLORIDE 132 MMOL/L (98-107); CREATININE SERUM 0.43 MG/DL (0.60-1.30); GFR ESTIMATED > 60; GLUCOSE 65 MG/DL (70-105); SODIUM 144 MMOL/L (135-145); TOTAL PROTEIN 2.2 GM/DL (6.4-8.2)
[2018-06-02 20:10] LABS: POTASSIUM 1.8 MMOL/L (3.6-5.0)
[2018-06-02 20:11] LABS: CALCIUM 3.8 MG/DL (8.5-10.1); CARBON DIOXIDE 8 MMOL/L (21-32)
[2018-06-02] MEDS ORDERED: CATHETER FLUSH 10 ML SYR IV PRN (20:15)
[2018-06-02] MEDS: NS IV 1000 ML 1,000 ML IV SCH (20:39)
[2018-06-02 20:49] LABS: ACETAMINOPHEN 11 UG/ML (10-30); ALANINE AMINOTRANSFERASE 45 U/L (0-55); ALKALINE PHOSPHATASE 64 U/L (40-136); BUN/CREATININE RATIO 14; CALCIUM 9.1 MG/DL (8.5-10.1); CARBON DIOXIDE 16 MMOL/L (21-32); CHLORIDE 110 MMOL/L (98-107); CREATININE SERUM 1.07 MG/DL (0.60-1.30); GFR ESTIMATED > 60; GLUCOSE 127 MG/DL (70-105); POTASSIUM 4.1 MMOL/L (3.6-5.0); SODIUM 136 MMOL/L (135-145); TOTAL PROTEIN 6.2 GM/DL (6.4-8.2)
[2018-06-02 21:00] VITALS: BP 170/106
[2018-06-02 22:00] VITALS: BP 167/103
[2018-06-02 23:00] VITALS: BP 164/105
[2018-06-03] VITALS (21 sets, daily range): BP systolic 103–174; BP diastolic 61–111
[2018-06-03] MEDS: NS IV 1000 ML 1,000 ML IV SCH ×3 (03:19→16:34)
[2018-06-03 04:10] LABS: BASOPHILS % (AUTO) 0 % (0-10); EOSINOPHILS # (AUTO) 0.1 10^3/uL (0.0-0.3); EOSINOPHILS % (AUTO) 1 % (0-10); HEMATOCRIT 39 % (40-54); HEMOGLOBIN 13.3 G/DL (13.3-17.7); LYMPHOCYTES # (AUTO) 1.5 X 10^3 (1.0-4.0); LYMPHOCYTES % (AUTO) 13 % (12-44); MEAN CORPUSCULAR HEMOGLOBIN 29 PG (25-34); MEAN CORPUSCULAR HGB CONC 35 G/DL (32-36); MEAN CORPUSCULAR VOLUME 85 FL (80-99); MEAN PLATELET VOLUME 11.6 FL (7.4-10.4); MONOCYTES % (AUTO) 9 % (0-12); NEUTROPHILS # (AUTO) 9.5 X 10^3 (1.8-7.8); NEUTROPHILS % (AUTO) 78 % (42-75); PLATELET COUNT 202 10^3/uL (130-400); RED BLOOD COUNT 4.53 10^6/uL (4.35-5.85); RED CELL DISTRIBUTION WIDTH 13.3 % (10.0-14.5); WHITE BLOOD COUNT 12.2 10^3/uL (4.3-11.0)
[2018-06-03 04:37] LABS: ACETAMINOPHEN < 10 UG/ML (10-30); ALANINE AMINOTRANSFERASE 54 U/L (0-55); ALBUMIN 4.1 GM/DL (3.2-4.5); ALKALINE PHOSPHATASE 73 U/L (40-136); BUN/CREATININE RATIO 11; CALCIUM 9.4 MG/DL (8.5-10.1); CARBON DIOXIDE 18 MMOL/L (21-32); CHLORIDE 107 MMOL/L (98-107); CREATININE SERUM 1.06 MG/DL (0.60-1.30); GFR ESTIMATED > 60; GLUCOSE 116 MG/DL (70-105); MAGNESIUM 1.9 MG/DL (1.8-2.4); PHOSPHORUS 2.9 MG/DL (2.3-4.7); POTASSIUM 3.7 MMOL/L (3.6-5.0); SODIUM 136 MMOL/L (135-145); TOTAL PROTEIN 6.7 GM/DL (6.4-8.2)
[2018-06-03] MEDS ORDERED: ACETYLCYSTEINE IV ONE ×3 (07:30→13:30)
[2018-06-03] MEDS ORDERED: D5W IV ONE ×3 (07:30→13:30)
--- NOTE | 2018-06-03 08:34 | History & Physicial ---
History of Present Illness History of Present Illness Reason for visit/HPI PT IS A 42 Y/O MALE WHO IS KNOWN TO ME FROM CLINIC. DESTINEE HAS A HISTORY OF CHRONIC BACK PAIN. HE HAD SURGERY SEVERAL YEARS AGO WITH HOPE OF IMPROVED SYMPTOMS OF HIS PAIN AND DYSFUNCTION WITH MINIMAL IMPROVEMENT. HE THEN STARTED TO HAVE A DECLINE IN HIS FUNCTION AND A TENS UNIT WAS PLACED WHICH HELPED HIS DISCOMFORT SO A NERVE STIMULATOR WAS PLACED. INITIALLY HE HAD IMPROVED SYMPTOMS , THEN HIS NERVE STIMULATOR, THEN THE DEVICE DID NOT SEEM TO BE HELPING, SO DESTINEE STOPPED USING THE REHABILITATION LIAISON. DESTINEE STARTED COMING TO MY CLINIC WITH THE CHRONIC PAIN, AND WE HAVE TRIED SEVERAL DIFFERENT MEDICATIONS OVER THE PAST TWO YEARS WITH ESSENTIALLY NO IMPROVEMENT IN HIS SYMPTOMS WITH ANY OF THE MEDICATIONS WE HAVE TRIED - HE HAS BEEN ON DURAGESIC PATCHES, OXYCONTIN, OXYCODONE, HYDROCODONE, BELBUCCA, LYRICA, GABAPENTIN, CYMBALTA, TIZANIDINE, ALL WITH NO REAL HELP OF HIS PAIN. HE HAS RECEIVED EPIDURAL INJECTIONS, AND WENT TO A SPECIALIST FOR STEM CELL TRANSPLANT LAST YEAR WHICH HAS NOT PROVEN TO HELP HIS DISCOMFORT EITHER. DESTINEE REPORTS THAT THE PAIN WILL BE SLIGHTLY MASKED WITH THE PAIN MEDICATIONS, BUT HE HAS TO STRUGGLE TO GET THROUGH HIS DAY. WE HAD DECIDED IN APRIL TO START TAPERING HIS PAIN MEDICATIONS DOWN DUE TO DESTINEE FEELING LIKE THE MEDICATION REALLY WAS NOT HELPING. HE HAS BEEN BACK TO , HAD A NEW TENS UNIT PLACED, WHICH DID NOT HELP EITHER - EVEN ON THE HIGHEST SETTING. WE THEN SENT HIM TO DR. WATSON FOR POSSIBLE NERVE ABLATION, OR OTHER TARGETED INJECTIONS - DESTINEE SAW HIM A FEW DAYS AGO, WAS TOLD THAT THERE WAS NOTHING THAT COULD BE OFFERED TO HIM AND TO GO BACK TO HIS PRIMARY CARE DOCTOR FOR PAIN MEDICATIONS. DESTINEE TRIED TO EXPLAIN THAT HE WAS NOT LOOKING FOR MEDS, JUST WANTED SOME DEFINITIVE HELP, AND WAS TURNED AWAY. APPARENTLY, DESTINEE HAD DECIDED THAT IF DR. WATSON COULD NOT HELP HIM, HE WAS DONE TRYING AND HE WOULD END HIS LIFE. HE HAD SAVED SOME MEDICATIONS, AND DESTINEE REPORTS TAKING 100 OXYCODONE/APAP, 4 TIZANIDIE, 4 LYRICA, AND 8 AMBIEN. TODAY DESTINEE STATES THAT HE IS JUST TIRED OF TRYING EVERY DAY TO WORK THROUGH THE PAIN. HE HURTS TO LAY DOWN, HURTS TO SIT, HURTS TO STAND, AND JUST CANNOT HANDLE THE PAIN. Date of Admission Jun 02, 2018 at 19:29 Date Seen by Provider: Jun 03, 2018 Time Seen by Provider: 08:30 I consulted on this patient on 06/03/18 08:34 Attending Physician Dipika Gore MD Admitting Physician Dipika Gore MD Consult Allergies and Home Medications Allergies Coded Allergies: NKANo Known Allergies (Unverified Allergy, Mild, 09/09/09) Home Medications Atorvastatin Calcium 20 Mg Tablet, 20 MG PO HS, (Reported) Diclofenac Sodium/Misoprostol 1 Each Tab.ir.dr, 1 TAB PO BID, (Reported) Escitalopram Oxalate 10 Mg Tablet, 10 MG PO DAILY, (Reported) Oxycodone HCl/Acetaminophen 1 Each Tablet, 1 TAB PO Q4H PRN for PAIN-MODERATE, ( Reported) Testosterone Cypionate 200 Mg/1 Ml Vial, 200 MG IM EVERY 14 DAYS, (Reported) Tizanidine HCl 4 Mg Tablet, 4 MG PO QID PRN for MUSCLE SPASMS, (Reported) Zolpidem Tartrate 12.5 Mg Tab.mphase, 12.5 MG PO HS, (Reported) Patient Home Medication List Home Medication List Reviewed: Yes Past [id number] Hx Patient Social History Marrital Status: Number of Children: 1 Number of living children: 1 Living Status: LIVES IN HOME BY HIMSELF 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 Alcohol Use: Denies Use Recreational Drug Use: No Smoking Status: Never a Smoker 2nd Hand Smoke Exposure: No Physical Abuse Screen: No Sexual Abuse: No Recent Foreign Travel: No Contact w/other who traveled: No Recent Hopitalizations: No Recent Infectious Disease Expo: No Immunizations Up To Date Pediatric: No Seasonal Allergies Seasonal Allergies: No Surgeries Yes (DISCECTOMY L4-L5) Respiratory No Currently Using CPAP: No Currently Using BIPAP: No Cardiovascular No Neurological Yes (sciatic pain/numbness and tingling in feet) Reproductive System Hx Reproductive Disorders: No Sexually Transmitted Disease: No HIV/AIDS: No Genitourinary No Gastrointestinal Yes (r/t medication) Chronic Diarrhea Musculoskeletal Yes (back injury 7 years ago, herniated disk l-5, NERVE STIMULATOR IN BACK) Chronic Back Pain, Spasms Endocrine History of Endocrine Disorders: No HEENT History of HEENT Disorders: No Loss of Vision: Denies Hearing Impairment: Denies Cancer No Psychosocial History of Psychiatric Problem: Yes Behavioral Health Disorders: Sleep Difficulties, Suicide Attempts, Depression Integumentary History of Skin or Integumenta: No Blood Transfusions History of Blood Disorders: No Reviewed Nursing Assessment Reviewed/Agree w Nursing PMH: Yes Family Medical History Significant Family History: Heart Disease, Diabetes, Hypertension Family Hx: Abdominal aortic aneurysm Cardiovascular disease 19 FATHER, Onset:Unknown Cataracts 19 MOTHER, Onset:Unknown Diabetes mellitus 19 MOTHER, Onset:Unknown FH: atrial fibrillation 19 FATHER, Onset:Unknown FH: back pain 19 FATHER, Onset:Unknown Thyroid disease 19 MOTHER, Onset:Unknown Review of Systems Constitutional: No chills, No fever; malaise, weakness EENTM: blurred vision; No hearing loss, No hoarseness, No throat swelling Respiratory: No cough, No dyspnea on exertion, No short of breath Cardiovascular: No chest pain; edema; No palpitations Gastrointestinal: abdominal pain; No nausea, No vomiting Genitourinary: frequency Musculoskeletal: back pain, muscle weakness Skin: no symptoms reported; No dryness, No lesions, No pruritus, No rash Psychiatric/Neurological: Denies Anxiety; Depressed, Tingling (OF FEET - CHRONIC); Denies Tremors; Weakness All Other Systems Reviewed Negative Unless Noted: Yes Physical Exam Vital Signs Vital Signs - First Documented 06/02/18 15:33 Temp 95.5 Pulse 60 Resp 14 B/P (MAP) 121/105 (110) Pulse Ox 99 O2 Delivery Room Air Capillary Refill : Less Than 3 Seconds Height, Weight, BMI Height: 5'9.00" Weight: 237lbs. 8.0oz. 107.273651xp; 35.1 BMI Method:Estimated General Appearance: WD/WN, Mild Distress (DUE TO PAIN) HEENT: PERRL/EOMI, Normal ENT Inspection Neck: Full Range of Motion, Supple Respiratory: Chest Non Tender, Lungs Clear, Normal Breath Sounds, No Accessory Muscle Use, No Respiratory Distress Cardiovascular: Regular Rate, Rhythm, No Edema, No Gallop, No Murmur Gastrointestinal: Normal Bowel Sounds, Soft, Tenderness (MILDLY EPIGASTRIC) Rectal: Deferred Extremity: Normal Capillary Refill, Normal Range of Motion, Non Tender, No Calf Tenderness, No Pedal Edema Neurologic/Psychiatric: Alert, Oriented x3, No Motor/Sensory Deficits, Normal 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 THERE HAS NOT BEEN ANY ELEVATION IN HIS TYLENOL LEVEL DESPITE DESTINEE REPORTING THAT HE TOOK 100 PILLS OF PERCOCET. ELEVATED LIVER ENZYMES - - MONITOR SYMPTOMS, MONITOR LABS, SUPPORTIVE CARE WITH IV MUCOMYST AT THIS TIME. CHRONIC BACK AND LEG PAIN - HISTORY OF MULTIPLE INTERVENTIONS AND MULTIPLE ATTEMPTS AT MEDICAL MANAGEMENT - WITH NO IMPROVEMENT IN HIS SYMPTOMS AND RECENT EVALUATION WITH NO HOPE FOR TREATMENT- I HAVE RECOMMENDED FOLLOWS: AN APPOINTMENT HAS BEEN MADE FOR DESTINEE AT [facility] THE FOLLOWING INFORMATION HAS BEEN PROVIDED TO DESTINEE, HIS MOM AND HIS FRIEND plan as follows: consultation with Pain Management 2nd floor of [facility] [address] check in desk appointment is on 06/27/[address] 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 FOR CURRENT TREATMENT AND PREVENTION OF WITHDRAWAL, WILL ORDER A FEW DOSES OF PRN FENTANYL, MONITOR HIS PAIN RESPONSE AND WITHDRAWAL. Admission Status: Inpatient Order (span 2 midnights) Reason for Inpatient Admission: SUICIDE ATTEMPT WITH ELEVATED LIVER ENZYMES ON SERIAL EXAM- WILL NEED MORE THAN TWO MIDNIGHTS FOR STABILIZATION OF SYMPTOMS AND ASSURANCE OF CONTROL OF TOXIC EXPOSURES. Clinical Quality Measures DVT/VTE Risk/Contraindication: Risk Factor Score Per Nursin RFS Level Per Nursing on Admit: 2=Moderate DIPIKA GORE MD Jun 03, 2018 08:34
[2018-06-03] MEDS ORDERED: ATOR20TA66 PO (08:37)
[2018-06-03] MEDS ORDERED: OXYC-465 PO (08:37)
[2018-06-03] MEDS ORDERED: DICL1TAB53 PO (08:37)
[2018-06-03] MEDS ORDERED: ESCI10TA55 PO (08:37)
[2018-06-03] MEDS ORDERED: TIZA4TAB3 PO (08:37)
[2018-06-03] MEDS ORDERED: TEST200V21 IM (08:37)
[2018-06-03] MEDS ORDERED: ZOLP12.546 PO (08:37)
[2018-06-03 08:47] LABS: INR 1.2 (0.8-1.4); PROTHROMBIN TIME PATIENT 14.8 SEC (12.2-14.7)
[2018-06-03] MEDS ORDERED: ONDANSETRON 8 MG (ZOFRAN) ORAL DISSOLVE TAB PO PRN (10:45)
[2018-06-03] MEDS: morphine INJ 4 MG/ML 1 ML (VIAL/SYRINGE) IVP PRN ×6 (11:26→23:35)
[2018-06-03] MEDS ORDERED: BISACODYL 10 MG SUPP (DULCOLAX) PR PRN (13:30)
[2018-06-03] MEDS ORDERED: METHYLNALTREXONE 12 MG/0.6 ML (RELISTOR) VIAL SQ NR (13:30)
[2018-06-03 14:27] LABS: ALANINE AMINOTRANSFERASE 54 U/L (0-55); ALBUMIN 3.6 GM/DL (3.2-4.5); ALKALINE PHOSPHATASE 68 U/L (40-136); BILIRUBIN,TOTAL 0.5 MG/DL (0.1-1.0); BUN/CREATININE RATIO 12; CALCIUM 8.8 MG/DL (8.5-10.1); CARBON DIOXIDE 17 MMOL/L (21-32); CHLORIDE 109 MMOL/L (98-107); CREATININE SERUM 0.84 MG/DL (0.60-1.30); GFR ESTIMATED > 60; GLUCOSE 112 MG/DL (70-105); POTASSIUM 3.7 MMOL/L (3.6-5.0); SODIUM 135 MMOL/L (135-145)
[2018-06-03] MEDS ORDERED: SALINE NASAL SPRAY (OCEAN) 45 ML BTL PRN (18:15)
[2018-06-03 18:51] LABS: ALBUMIN 3.6 GM/DL (3.2-4.5); BILIRUBIN,DIRECT 0.2 MG/DL (0.0-0.3); BILIRUBIN,INDIRECT 0.3 MG/DL; BILIRUBIN,TOTAL 0.5 MG/DL (0.1-1.0)
[2018-06-04] VITALS (12 sets, daily range): BP systolic 146–181; BP diastolic 84–133
[2018-06-04] MEDS: morphine INJ 4 MG/ML 1 ML (VIAL/SYRINGE) IVP PRN ×10 (01:29→22:41)
[2018-06-04] MEDS: NS IV 1000 ML 1,000 ML IV SCH ×2 (01:29→07:24)
[2018-06-04] MEDS ORDERED: diphenhydrAMINE 25 MG TAB (BENADRYL) PO ONE ×2 (02:23→02:30)
[2018-06-04] MEDS ORDERED: KETOROLAC 30 MG/ML VIAL ONE (02:23)
[2018-06-04] MEDS ORDERED: GABAPENTIN 600 MG (NEURONTIN) TAB ONE (02:23)
[2018-06-04] MEDS ORDERED: GABAPENTIN 600 MG (NEURONTIN) TAB PO ONE (02:30)
[2018-06-04] MEDS ORDERED: KETOROLAC 30 MG/ML VIAL IVP ONE (02:30)
[2018-06-04 04:03] LABS: BASOPHILS % (AUTO) 0 % (0-10); EOSINOPHILS % (AUTO) 0 % (0-10); HEMATOCRIT 38 % (40-54); HEMOGLOBIN 13.1 G/DL (13.3-17.7); LYMPHOCYTES # (AUTO) 1.1 X 10^3 (1.0-4.0); LYMPHOCYTES % (AUTO) 11 % (12-44); MEAN CORPUSCULAR HEMOGLOBIN 29 PG (25-34); MEAN CORPUSCULAR HGB CONC 35 G/DL (32-36); MEAN CORPUSCULAR VOLUME 83 FL (80-99); MEAN PLATELET VOLUME 10.7 FL (7.4-10.4); MONOCYTES # (AUTO) 1.2 X 10^3 (0.0-1.0); MONOCYTES % (AUTO) 12 % (0-12); NEUTROPHILS # (AUTO) 8.2 X 10^3 (1.8-7.8); NEUTROPHILS % (AUTO) 77 % (42-75); PLATELET COUNT 186 10^3/uL (130-400); RED BLOOD COUNT 4.57 10^6/uL (4.35-5.85); RED CELL DISTRIBUTION WIDTH 13.6 % (10.0-14.5); WHITE BLOOD COUNT 10.6 10^3/uL (4.3-11.0)
[2018-06-04 04:25] LABS: BUN/CREATININE RATIO 5; CARBON DIOXIDE 15 MMOL/L (21-32); CHLORIDE 111 MMOL/L (98-107); CREATININE SERUM 0.76 MG/DL (0.60-1.30); GFR ESTIMATED > 60; GLUCOSE 110 MG/DL (70-105); MAGNESIUM 1.9 MG/DL (1.8-2.4); SODIUM 140 MMOL/L (135-145)
[2018-06-04 04:46] LABS: INR 1.1 (0.8-1.4); PROTHROMBIN TIME PATIENT 14.2 SEC (12.2-14.7)
[2018-06-04] MEDS ORDERED: POLYETHYLENE GLYCOL 17 GM (MIRALAX) PACK PO SCH (09:00)
[2018-06-04] MEDS ORDERED: POLYETHYLENE GLYCOL 17 GM (MIRALAX) PACK PO PRN (09:00)
--- NOTE | 2018-06-04 11:31 | Progress Note-Hospitalist ---
Subjective HPI/CC On Admission Date Seen by Provider: Jun 04, 2018 Time Seen by Provider: 11:00 Subjective/Events-last exam This is a 42-year-old white male clinic patient of Dr. Gore who overdosed on multiple medications he takes on a chronic basis including narcotics and was placed in the ICU for narcotic withdrawal monitoring and detox. He is reporting right eye pain due to her recurrent corneal abrasion and asking for narcotics for that and I reached out to Dr. Contreras and he did not recommend anything pertaining to pain control of this only gel ointment that he has at the bedside already. Parents at the bedside requesting more narcotics and I told them I was given strict instructions by Dr. Gore that 2 mg of morphine will be given IV every 2 hours to prevent narcotic withdrawal but no more will be given since this will ultimately result in defeating the whole purpose of detoxification. His mother is still asking for more narcotics and I counseled them once again on the need to stay the course for detox. She reports he has an appointment at [facility] for narcotic detox and wonders why he can't be More comfortable at this current time and I once again told her I was given strict instructions for no additional pain medication since that would defeat the whole purpose of detox. Spoke with Lakshmi his nurse in depth everyone understands the plan and no additional narcotics will be given. He may contemplate leaving AGAINST MEDICAL ADVICE and considering he is his own person at 42 years old and his parents take care of him apparently he will have a safe place to be discharged to if it comes to that point. Review of Systems General: Fatigue, Malaise Gastrointestinal: Nausea Musculoskeletal: neck pain, shoulder pain, arm pain, back pain, hand pain, leg pain, foot pain Objective Exam Vital Signs Vital Signs Date Time Temp Pulse Resp B/P (MAP) Pulse Ox O2 Delivery O2 Flow Rate FiO2 06/04/18 09:00 96 168/111 (130) 97 Room Air 06/03/18 23:42 99.5 06/03/18 09:00 17 Capillary Refill : Less Than 3 Seconds General Appearance: WD/WN, Chronically ill, Mild Distress, Obese HEENT: Other (right eye covered with patch) Neck: Full Range of Motion, Normal Inspection, Non Tender, Supple, Carotid Bruit Respiratory: Chest Non Tender, Lungs Clear, Normal Breath Sounds, No Accessory Muscle Use, No Respiratory Distress Cardiovascular: Regular Rate, Rhythm, No Edema, No Gallop, No JVD, No Murmur, Normal Peripheral Pulses Neurologic/Psychiatric: Alert, Oriented x3, No Motor/Sensory Deficits, Depressed Affect Skin: Normal Color, Warm/Dry Lymphatic: No Adenopathy Results/Procedures Lab Laboratory Tests 06/03/18 13:51 06/04/18 03:08 Patient resulted labs reviewed. Assessment/Plan Assessment and Plan Assess & Plan/Chief Complaint Narcotic withdrawal Chronic right eye corneal abrasion Chronic pain Plan: Continue current regimen put forth by PCP Gel med to eye Diagnosis/Problems Diagnosis/Problems (1) Narcotic withdrawal Status: Acute (2) Suicide attempt Status: Resolved (3) Overdose Status: Resolved Qualifiers: Encounter type: initial encounter Injury intent: intentional self-harm Qualified Codes: T50.902A - Poisoning by unspecified drugs, medicaments and biological substances, intentional self-harm, initial encounter (4) Corneal abrasion Status: Chronic Qualifiers: Encounter type: initial encounter Laterality: right Qualified Codes: S05.01XA - Injury of conjunctiva and corneal abrasion without foreign body, right eye, initial encounter (5) Chronic pain Status: Chronic Qualifiers: Chronic pain type: chronic pain syndrome Qualified Codes: G89.4 - Chronic pain syndrome (6) Lumbar radiculopathy Status: Chronic (7) Hypokalemia Status: Acute Clinical Quality Measures DVT/VTE Risk/Contraindication: Risk Factor Score Per Nursin RFS Level Per Nursing on Admit: 2=Moderate LEONA AGUERO DO Jun 04, 2018 11:31
[2018-06-04] MEDS: amLODIPine 5 MG (NORVASC) TAB PO SCH (12:11)
[2018-06-04] MEDS ORDERED: KCL 10 MEQ TAB (MICRO K) PO NR (12:30)
[2018-06-04] MEDS ORDERED: PREGABALIN 75 MG (LYRICA) CAP PO NR (14:54)
[2018-06-04] MEDS: KCL 10 MEQ TAB (MICRO K) PO SCH (17:08)
[2018-06-04] MEDS: PREGABALIN 75 MG (LYRICA) CAP PO SCH (20:50)
[2018-06-04] MEDS: MELATONIN 3 MG TABLET PO SCH (20:50)
[2018-06-05] MEDS: morphine INJ 4 MG/ML 1 ML (VIAL/SYRINGE) IVP PRN ×12 (00:55→23:04)
[2018-06-05 04:00] VITALS: BP 126/66
[2018-06-05 04:15] LABS: BASOPHILS % (AUTO) 0 % (0-10); EOSINOPHILS # (AUTO) 0.1 10^3/uL (0.0-0.3); EOSINOPHILS % (AUTO) 1 % (0-10); HEMATOCRIT 37 % (40-54); HEMOGLOBIN 13.2 G/DL (13.3-17.7); LYMPHOCYTES # (AUTO) 1.5 X 10^3 (1.0-4.0); LYMPHOCYTES % (AUTO) 14 % (12-44); MEAN CORPUSCULAR HEMOGLOBIN 29 PG (25-34); MEAN CORPUSCULAR HGB CONC 35 G/DL (32-36); MEAN CORPUSCULAR VOLUME 82 FL (80-99); MEAN PLATELET VOLUME 11.1 FL (7.4-10.4); MONOCYTES # (AUTO) 1.2 X 10^3 (0.0-1.0); MONOCYTES % (AUTO) 11 % (0-12); NEUTROPHILS # (AUTO) 8.5 X 10^3 (1.8-7.8); NEUTROPHILS % (AUTO) 75 % (42-75); PLATELET COUNT 217 10^3/uL (130-400); RED BLOOD COUNT 4.53 10^6/uL (4.35-5.85); RED CELL DISTRIBUTION WIDTH 13.5 % (10.0-14.5); WHITE BLOOD COUNT 11.4 10^3/uL (4.3-11.0)
[2018-06-05 04:35] LABS: ALANINE AMINOTRANSFERASE 64 U/L (0-55); ALBUMIN 4.4 GM/DL (3.2-4.5); ALKALINE PHOSPHATASE 66 U/L (40-136); BILIRUBIN,TOTAL 1.4 MG/DL (0.1-1.0); BUN/CREATININE RATIO 3; CALCIUM 9.7 MG/DL (8.5-10.1); CARBON DIOXIDE 19 MMOL/L (21-32); CHLORIDE 106 MMOL/L (98-107); CREATININE SERUM 0.77 MG/DL (0.60-1.30); GFR ESTIMATED > 60; GLUCOSE 116 MG/DL (70-105); MAGNESIUM 1.8 MG/DL (1.8-2.4); PHOSPHORUS 3.1 MG/DL (2.3-4.7); SODIUM 140 MMOL/L (135-145); TOTAL PROTEIN 7.4 GM/DL (6.4-8.2)
[2018-06-05] MEDS: KCL 10 MEQ TAB (MICRO K) PO SCH ×4 (06:55→20:59)
[2018-06-05 08:00] VITALS: BP 156/97
[2018-06-05] MEDS: PREGABALIN 75 MG (LYRICA) CAP PO SCH ×2 (09:02→20:59)
[2018-06-05] MEDS: amLODIPine 5 MG (NORVASC) TAB PO SCH (09:02)
[2018-06-05 11:12] VITALS: BP 143/93
--- NOTE | 2018-06-05 11:43 | Progress Note-Hospitalist ---
Subjective HPI/CC On Admission Date Seen by Provider: Jun 05, 2018 Time Seen by Provider: 11:00 Subjective/Events-last exam Patient asking for more pain meds and I have once again explained that I cannot order any more meds than what Dr. Gore already ordered and the current orders stand Parents at the bedside and has set an alarm to come on every 2 hours so he can have morphine 2 mg Hasn't slept at all Patient very anxious Denies any suicidal ideation Primary care provider to decide on ultimate disposition Review of Systems General: Fatigue, Malaise Musculoskeletal: back pain Objective Exam Vital Signs Vital Signs Date Time Temp Pulse Resp B/P (MAP) Pulse Ox O2 Delivery O2 Flow Rate FiO2 06/05/18 11:12 98.4 89 16 143/93 (110) 98 Room Air Capillary Refill : Less Than 3 SecondsLess Than 3 Seconds General Appearance: WD/WN, Mild Distress, Other (Anxious) Respiratory: Chest Non Tender, Lungs Clear, Normal Breath Sounds, No Accessory Muscle Use, No Respiratory Distress Cardiovascular: Regular Rate, Rhythm, No Edema, No Gallop, No JVD, No Murmur, Normal Peripheral Pulses Neurologic/Psychiatric: Alert, Oriented x3, No Motor/Sensory Deficits, Depressed Affect Results/Procedures Lab Laboratory Tests 06/05/18 03:35 Patient resulted labs reviewed. Assessment/Plan Assessment and Plan Assess & Plan/Chief Complaint Narcotic withdrawal Chronic right eye corneal abrasion Chronic pain Plan: Continue current regimen put forth by PCP Gel med to eye Diagnosis/Problems Diagnosis/Problems (1) Narcotic withdrawal Status: Acute (2) Suicide attempt Status: Resolved (3) Overdose Status: Resolved Qualifiers: Encounter type: initial encounter Injury intent: intentional self-harm Qualified Codes: T50.902A - Poisoning by unspecified drugs, medicaments and biological substances, intentional self-harm, initial encounter (4) Corneal abrasion Status: Chronic Qualifiers: Encounter type: initial encounter Laterality: right Qualified Codes: S05.01XA - Injury of conjunctiva and corneal abrasion without foreign body, right eye, initial encounter (5) Chronic pain Status: Chronic Qualifiers: Chronic pain type: chronic pain syndrome Qualified Codes: G89.4 - Chronic pain syndrome (6) Lumbar radiculopathy Status: Chronic (7) Hypokalemia Status: Acute (8) Elevated liver enzymes Status: Acute Clinical Quality Measures DVT/VTE Risk/Contraindication: Risk Factor Score Per Nursin RFS Level Per Nursing on Admit: 2=Moderate LEONA AGUERO DO Jun 05, 2018 11:43
[2018-06-05 15:30] VITALS: BP 161/96
[2018-06-05 19:46] VITALS: BP 164/101
[2018-06-05] MEDS: MELATONIN 3 MG TABLET PO SCH (20:59)
[2018-06-05 23:00] VITALS: BP 149/91
[2018-06-06] MEDS: morphine INJ 4 MG/ML 1 ML (VIAL/SYRINGE) IVP PRN ×4 (01:05→07:02)
[2018-06-06 03:54] LABS: BASOPHILS % (AUTO) 0 % (0-10); EOSINOPHILS # (AUTO) 0.1 10^3/uL (0.0-0.3); EOSINOPHILS % (AUTO) 1 % (0-10); HEMATOCRIT 40 % (40-54); HEMOGLOBIN 13.7 G/DL (13.3-17.7); LYMPHOCYTES # (AUTO) 2.3 X 10^3 (1.0-4.0); LYMPHOCYTES % (AUTO) 20 % (12-44); MEAN CORPUSCULAR HEMOGLOBIN 29 PG (25-34); MEAN CORPUSCULAR HGB CONC 35 G/DL (32-36); MEAN CORPUSCULAR VOLUME 83 FL (80-99); MEAN PLATELET VOLUME 10.7 FL (7.4-10.4); MONOCYTES # (AUTO) 0.9 X 10^3 (0.0-1.0); MONOCYTES % (AUTO) 8 % (0-12); NEUTROPHILS % (AUTO) 71 % (42-75); PLATELET COUNT 230 10^3/uL (130-400); RED BLOOD COUNT 4.79 10^6/uL (4.35-5.85); WHITE BLOOD COUNT 11.3 10^3/uL (4.3-11.0)
[2018-06-06 04:00] VITALS: BP 138/76
[2018-06-06 04:21] LABS: BUN/CREATININE RATIO 4; CALCIUM 9.8 MG/DL (8.5-10.1); CARBON DIOXIDE 22 MMOL/L (21-32); CHLORIDE 109 MMOL/L (98-107); CREATININE SERUM 0.73 MG/DL (0.60-1.30); GFR ESTIMATED > 60; GLUCOSE 100 MG/DL (70-105); MAGNESIUM 1.9 MG/DL (1.8-2.4); PHOSPHORUS 3.6 MG/DL (2.3-4.7); POTASSIUM 3.3 MMOL/L (3.6-5.0); SODIUM 144 MMOL/L (135-145)
[2018-06-06 08:00] VITALS: BP 124/64
[2018-06-06] MEDS: KCL 10 MEQ TAB (MICRO K) PO SCH ×2 (08:20→13:52)
[2018-06-06] MEDS: PREGABALIN 75 MG (LYRICA) CAP PO SCH (08:20)
[2018-06-06] MEDS: amLODIPine 5 MG (NORVASC) TAB PO SCH (08:21)
[2018-06-06 09:19] LABS: BILIRUBIN,TOTAL 0.8 MG/DL (0.1-1.0)
[2018-06-06 09:22] LABS: ALBUMIN 4.1 GM/DL (3.2-4.5); BILIRUBIN,DIRECT 0.3 MG/DL (0.0-0.3); BILIRUBIN,INDIRECT 0.6 MG/DL; TOTAL PROTEIN 6.5 GM/DL (6.4-8.2)
[2018-06-06] MEDS ORDERED: PREG75CA PO (09:40)
[2018-06-06] MEDS ORDERED: AMLO5TAB7 PO (09:40)
[2018-06-06] MEDS ORDERED: OXYC-529 PO (09:40)
--- NOTE | 2018-06-06 09:41 | Discharge Inst-Complex ---
PDI Med Rec & Follow Up Appt. New Medications: Oxycodone HCl (Oxycodone HCl) 5 Mg Tablet 5 MG PO UD for 30 Days, TAB 60 Refills one tab every 4 hours daily x 1wk then 1tab every 6 hours x1wk then 1tab every 8 hours x 1 wk then 1 tab every 12 hours x 1 wk then 1 tab daily x 1wk then stop Amlodipine Besylate (Amlodipine Besylate) 5 Mg Tablet 5 MG PO DAILY, #30 TAB 3 Refills Pregabalin (Lyrica) 75 Mg Capsule 150 MG PO BID, #60 CAP 1 Refill Continued Medications: Testosterone Cypionate (Testosterone Cypionate) 200 Mg/1 Ml Vial 200 MG IM EVERY 14 DAYS, EA Discontinued Medications: Atorvastatin Calcium (Atorvastatin Calcium) 20 Mg Tablet 20 MG PO HS, TAB Diclofenac Sodium/Misoprostol (Diclofenac-Misoprost 75-200 Tb) 1 Each Tab.ir.dr 1 TAB PO BID, TAB Escitalopram Oxalate (Escitalopram Oxalate) 10 Mg Tablet 10 MG PO DAILY, TAB Oxycodone HCl/Acetaminophen (Oxycodone-Acetaminophen 10-325) 1 Each Tablet 1 TAB PO Q4H PRN for PAIN-MODERATE, TAB Tizanidine HCl (Tizanidine HCl) 4 Mg Tablet 4 MG PO QID PRN for MUSCLE SPASMS, TAB Zolpidem Tartrate (Zolpidem Tartrate ER) 12.5 Mg Tab.mphase 12.5 MG PO HS, TAB Prescription: Transmitted to Pharmacy Activity, Diet and PDI Resume Normal Activity: Yes Discharge Diet: Regular Diet Symptoms to Reoprt to : Appetite Changes, Shortness of Breath NATIVIDAD STRICKLAND MD Jun 06, 2018 09:41
--- NOTE | 2018-06-06 09:42 | Discharge Summary ---
Diagnosis/Chief Complaint Date of Admission Jun 02, 2018 at 19:29 Date of Discharge Discharge Date: Jun 06, 2018 Discharge Time: 1300 Admission Diagnosis Admission Diagnosis SUICIDE ATTEMPT MEDICATION OVERDOSE CHRONIC PAIN SYNDROME DEPRESSION ELEVATED LIVER ENZYMES Discharge Diagnosis SUICIDE ATTEMPT MEDICATION OVERDOSE CHRONIC PAIN SYNDROME DEPRESSION ELEVATED LIVER ENZYMES Reason Hospital Visit PT IS A 42 Y/O MALE WHO IS KNOWN TO ME FROM CLINIC. DESTINEE HAS A HISTORY OF CHRONIC BACK PAIN. HE HAD SURGERY SEVERAL YEARS AGO WITH HOPE OF IMPROVED SYMPTOMS OF HIS PAIN AND DYSFUNCTION WITH MINIMAL IMPROVEMENT. HE THEN STARTED TO HAVE A DECLINE IN HIS FUNCTION AND A TENS UNIT WAS PLACED WHICH HELPED HIS DISCOMFORT SO A NERVE STIMULATOR WAS PLACED. 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 DESTINEE STARTED COMING TO MY CLINIC WITH THE CHRONIC PAIN, AND WE HAVE TRIED SEVERAL DIFFERENT MEDICATIONS OVER THE PAST TWO YEARS WITH ESSENTIALLY NO IMPROVEMENT IN HIS SYMPTOMS WITH ANY OF THE MEDICATIONS WE HAVE TRIED - HE HAS BEEN ON DURAGESIC PATCHES, OXYCONTIN, OXYCODONE, HYDROCODONE, BELBUCCA, LYRICA, GABAPENTIN, CYMBALTA, TIZANIDINE, ALL WITH NO REAL HELP OF HIS PAIN. HE HAS RECEIVED EPIDURAL INJECTIONS, AND WENT TO A SPECIALIST FOR STEM CELL TRANSPLANT LAST YEAR WHICH HAS NOT PROVEN TO HELP HIS DISCOMFORT EITHER. DESTINEE REPORTS THAT THE PAIN WILL BE SLIGHTLY MASKED WITH THE PAIN MEDICATIONS, BUT HE HAS TO STRUGGLE TO GET THROUGH HIS DAY. WE HAD DECIDED IN APRIL TO START TAPERING HIS PAIN MEDICATIONS DOWN DUE TO DESTINEE FEELING LIKE THE MEDICATION REALLY WAS NOT HELPING. HE HAS BEEN BACK TO , HAD A NEW TENS UNIT PLACED, WHICH DID NOT HELP EITHER - EVEN ON THE HIGHEST SETTING. WE THEN SENT HIM TO DR. WATSON FOR POSSIBLE NERVE ABLATION, OR OTHER TARGETED INJECTIONS - DESTINEE SAW HIM A FEW DAYS AGO, WAS TOLD THAT THERE WAS NOTHING THAT COULD BE OFFERED TO HIM AND TO GO BACK TO HIS PRIMARY CARE DOCTOR FOR PAIN MEDICATIONS. DESTINEE TRIED TO EXPLAIN THAT HE WAS NOT LOOKING FOR MEDS, JUST WANTED SOME DEFINITIVE HELP, AND WAS TURNED AWAY. APPARENTLY, DESTINEE HAD DECIDED THAT IF DR. WATSON COULD NOT HELP HIM, HE WAS DONE TRYING AND HE WOULD END HIS LIFE. HE HAD SAVED SOME MEDICATIONS, AND DESTINEE REPORTS TAKING 100 OXYCODONE/APAP, 4 TIZANIDIE, 4 LYRICA, AND 8 AMBIEN. TODAY DESTINEE STATES THAT HE IS JUST TIRED OF TRYING EVERY DAY TO WORK THROUGH THE PAIN. HE HURTS TO LAY DOWN, HURTS TO SIT, HURTS TO STAND, AND JUST CANNOT HANDLE THE PAIN. Discharge Summary Discharge Physical Examination Allergies: Coded Allergies: NILESANo Known Allergies (Unverified Allergy, Mild, 09/09/09) Vitals & I&Os General Appearance: Alert, Oriented X3, Cooperative HEENT: Atraumatic, PERRLA Respiratory: Clear to Auscultation Cardiovascular: Regular Rate Abdominal: Normal Bowel Sounds, Soft Extremities: No Clubbing, No Cyanosis Skin: No Rashes Neuro: Cranial Nerves 3-12 NL Psych/Mental Status: Mental Status NL, Mood NL Hospital Course SUICIDE ATTEMPT MEDICATION OVERDOSE CHRONIC PAIN SYNDROME DEPRESSION ELEVATED LIVER ENZYMES SUICIDE ATTEMPT WITH CHRONIC DEPRESSION DUE TO HIS CHRONIC PAIN - PT'S SUICIDE ATTEMPT WAS DUE TO MEDICATION OVERDOSE - - CONTINUE WITH IV FLUIDS, AND SERIAL LABS. THERE HAS NOT BEEN ANY ELEVATION IN HIS TYLENOL LEVEL DESPITE DESTINEE REPORTING THAT HE TOOK 100 PILLS OF PERCOCET. PT HAD RESOLUTION OF HIS GROGGINESS, WEAKNESS AND HE WAS DISCHARGED TO HOME IN THE CARE OF HIS FAMILY HE WAS NOT ABLE TO BE DISCHARGED TO AN INPATIENT PSYCHIATRIC FACILITY. THE PATIENT'S FAMILY AND SIGNIFICANT OTHER FEEL THAT HE IS SAFE AND HIS MEDICATION IS GOING TO DISPENSED BY HIS PARENTS. ELEVATED LIVER ENZYMES - - MONITOR SYMPTOMS, MONITOR LABS, SUPPORTIVE CARE WITH IV MUCOMYST AT THIS TIME. IMPROVED CHRONIC BACK AND LEG PAIN - HISTORY OF MULTIPLE INTERVENTIONS AND MULTIPLE ATTEMPTS AT MEDICAL MANAGEMENT - WITH NO IMPROVEMENT IN HIS SYMPTOMS AND RECENT EVALUATION WITH NO HOPE FOR TREATMENT- I HAVE RECOMMENDED FOLLOWS: AN APPOINTMENT HAS BEEN MADE FOR DESTINEE AT [facility] THE FOLLOWING INFORMATION HAS BEEN PROVIDED TO DESTINEE, HIS MOM AND HIS FRIEND plan as follows: consultation with Pain Management 2nd floor of [facility] C25 check in desk appointment is on 06/27/18 at [address] Tian Haines [id number] [facility] [address] Fax [phone] phone [phone] TO HELP PREVENT SEVERE WITHDRAWAL SYMPTOMS - DESTINEE WILL BE DISCHARGED ON PERCOCET WITH PLANS TO TAPER HIS MEDICATION FOLLOWS - 1 PILL EVER6 HOURS X 1 WEEK THEN 1 TAB EVERY 8 HOURS X 1 WK THEN 1 TAB EVERY 12 HOURS X 1 WK THEN 1 TAB DAILY X 1 WEEK THEN EVERY OTHER DAY THEN STOP Pending Labs Discharge Condition at discharge IMPROVED SYMPTOMS - PT SAFELY DISCHARGED INTO THE CARE OF HIS PARENTS. Instructions to patient/family Please see electronic discharge instructions given to patient. Discharge Medications Reviewed and agree with Discharge Medication list on patient's Discharge Instruction sheet Clinical Quality Measures DVT/VTE Risk/Contraindication: Risk Factor Score Per Nursin RFS Level Per Nursing on Admit: 2=Moderate NATIVIDAD STRICKLAND MD Jun 06, 2018 09:42
[2018-06-06 12:00] VITALS: BP 172/87
== END 2018-06-06 15:02 | disposition home or self-care (01) | DRG 918 ==
LOC: EDUNIT# 15:15 → ER 15:16 → ICU 19:29 → 4TH 06-04 15:15
PROVIDERS: ADMIT Family Medicine; ATTEND Family Medicine
DX: T40.2X2A Poisoning by other opioids, intentional self-harm, initial encounter (principal); T42.6X2A Poisoning by other antiepileptic and sedative-hypnotic drugs, intentional self-harm, initial encounter; T43.212A Poisoning by selective serotonin and norepinephrine reuptake inhibitors, intentional self-harm, initial encounter; N17.9 Acute kidney failure, unspecified; R44.3 Hallucinations, unspecified; R45.851 Suicidal ideations; F11.23 Opioid dependence with withdrawal; Z94.84 Stem cells transplant status; T47.0X2A Poisoning by histamine H2-receptor blockers, intentional self-harm, initial encounter; T42.8X2A Poisoning by antiparkinsonism drugs and other central muscle-tone depressants, intentional self-harm, initial encounter; R40.0 Somnolence; R47.81 Slurred speech; R45.1 Restlessness and agitation; R25.3 Fasciculation; D72.829 Elevated white blood cell count, unspecified; G89.4 Chronic pain syndrome; M79.5 Residual foreign body in soft tissue; M79.606 Pain in leg, unspecified; F32.9 Major depressive disorder, single episode, unspecified; R74.8 Abnormal levels of other serum enzymes; S39.92XS Unspecified injury of lower back, sequela; S05.01XA Injury of conjunctiva and corneal abrasion without foreign body, right eye, initial encounter; E87.6 Hypokalemia; M54.16 Radiculopathy, lumbar region; X58.XXXA Exposure to other specified factors, initial encounter
CPT/HCPCS: 36415; 51702; 70450; 71045; 72125; 80048; 80053; 80076; 80306; 80320; 80329; 81000; 82962; 83735; 84100; 84443; 85007; 85025; 85027; 85610; 85730; 87081; 93005; 96360

== ENCOUNTER → 2018-06-30 | Outpatient (CLI) | payer BC ==
[~2018-06-30] MED LIST changes: +AMLO5TAB7 PO; +ATOR20TA66 PO; +DICL1TAB53 PO; +ESCI10TA55 PO; +OXYC-465 PO; +OXYC-529 PO; +TEST200V21 IM; +TIZA4TAB3 PO; +ZOLP12.546 PO
--- NOTE | 2018-06-30 17:34 | Diagnostic Imaging Report ---
INDICATION: Back pain with spine stimulator lead placement. TECHNIQUE: AP, Lateral and Swimmers imaging of the thoracic spine CORRELATION STUDY: None. FINDINGS: The thoracic spinal alignment appearing unremarkable. Vertebral body heights and disc spaces are fairly well maintained. No fracture or malalignment is seen. The cervical thoracic junction somewhat limited in visualization. No suggestion for acute bony abnormality. Thoracic spine stimulator lead is present, tip projects at the T7-T8 disc level. It projects over the posterior aspect of the spinal canal. IMPRESSION: No radiographic evidence for acute abnormality of the thoracic spine. Dictated by: Dictated on workstation # [id number]
== END ==
LOC: RAD 14:03
PROVIDERS: ATTEND Family Medicine
DX: M54.6 Pain in thoracic spine (principal); Z96.89 Presence of other specified functional implants
CPT/HCPCS: 72072